=== PATIENT | male | born 1950 | race Caucasian/White ===

== ENCOUNTER 2017-11-19 15:30 | Inpatient (IN) | payer MEDICARE, BC ==
[~2017-11-19] VITALS: Ht 185.4 cm; Wt 98.3 kg
[~2017-11-19 15:30] MED LIST: ADVAIR 250/28 DISKU1 IH; ATROVENT NASAL15 ML NS; BREO IH; HYDROCODONE/APAP; INCRUSE EL62.5 MCG/A IH; MIRAPEX0.25 MG PO; MULTIPLE VITAMI1 CAP PO; PAMELOR50 MG PO; PAROXETINE HCL20 MG PO; PAXIL 20MG20 MG PO; PRAMIPEXOLE D0.25 MG PO; PRIL40 PO; RT ADVAIR 228 DISKUS IH; RT SPIRIVA18 MCG IH; THEO-DUR 1100 MG/TAB PO
[2017-11-19 16:39] LABS: BASO # 0.1 (0.0-0.2); BASO % 0.9 % (0.0-2.0); EOS # 0.5 (0.0-0.7); EOS % 6.3 % (0-4.0); GRAN % 52.3 % (42.2-75.2); HEMATOCRIT 44.8 % (42.0-52.0); HEMOGLOBIN 15.6 g/dl (13.5-18.0); LYMPH # 2.6 (1.2-3.4); LYMPH % 34.9 % (20.0-51.0); MEAN CELL VOLUME 94 fl (80.0-100.0); MEAN CORPUSCULAR HEMOGLOBIN 33 pg (27.0-31.0); MEAN CORPUSCULAR HGB CONC 35 g/dl (33.0-37.0); MEAN PLATELET VOLUME 9.7 fl (7.4-10.4); MONO # 0.4 (0.1-0.6); MONO % 4.9 % (1.7-9.3); PLATELET COUNT 192 K/mm3 (130-400); RED BLOOD COUNT 4.79 M/mm3 (4.20-5.60)
[2017-11-19 16:54] LABS: ALBUMIN 4.2 gm/dL (3.5-5.0); BILIRUBIN,TOTAL 0.4 mg/dL (0.0-1.0); C-REACTIVE PROTEIN 1.6 mg/dL (0.0-0.9); CALCIUM 9.5 mg/dL (8.4-10.2); POTASSIUM 4.3 mmol/L (3.4-5.0); TOTAL PROTEIN 7.4 gm/dL (6.4-8.2)
[2017-11-19] MEDS ORDERED: ALBUTEROL S0.4 MG/ML PO (20:08)
[2017-11-19 20:59] VITALS: BP 157/86; PULSE 74; TEMP 98.3
[2017-11-19 21:08] VITALS: BP 157/8; PULSE 75; TEMP 98.3
[2017-11-19 23:42] VITALS: BP 157/70; PULSE 78; TEMP 98.2
[2017-11-20] MEDS ORDERED: TRELEGY ELLIPT1 EACH IH (03:27)
[2017-11-20 03:57] VITALS: BP 151/79; PULSE 87; TEMP 98.1
[2017-11-20 07:29] VITALS: BP 163/88; PULSE 92; TEMP 98.4
[2017-11-20 10:44] VITALS: BP 161/74; PULSE 108; TEMP 98.4
[2017-11-20] MEDS ORDERED: PAXIL 20MG20 MG PO (15:29)
[2017-11-20 16:05] VITALS: BP 176/82; PULSE 81; TEMP 99
[2017-11-20 20:00] VITALS: BP 171/82; PULSE 99; TEMP 98.5
[2017-11-20 22:50] VITALS: BP 160/77; PULSE 104; TEMP 98.2
[2017-11-21 04:24] VITALS: BP 151/80; PULSE 85; TEMP 97.9
[2017-11-21 08:33] VITALS: BP 144/73; PULSE 90; TEMP 98.3
[2017-11-21 08:45] LABS: BASO # 0.1 (0.0-0.2); BASO % 0.5 % (0.0-2.0); EOS # 0.1 (0.0-0.7); EOS % 0.7 % (0-4.0); GRAN # 12.4 (1.4-6.5); GRAN % 74.9 % (42.2-75.2); HEMATOCRIT 44.5 % (42.0-52.0); HEMOGLOBIN 15.1 g/dl (13.5-18.0); LYMPH # 3.6 (1.2-3.4); LYMPH % 21.7 % (20.0-51.0); MEAN CELL VOLUME 96 fl (80.0-100.0); MEAN CORPUSCULAR HEMOGLOBIN 33 pg (27.0-31.0); MEAN CORPUSCULAR HGB CONC 34 g/dl (33.0-37.0); MEAN PLATELET VOLUME 9.8 fl (7.4-10.4); MONO # 0.3 (0.1-0.6); MONO % 1.7 % (1.7-9.3); PLATELET COUNT 186 K/mm3 (130-400); RED BLOOD COUNT 4.63 M/mm3 (4.20-5.60)
[2017-11-21 10:19] LABS: CALCIUM 9.2 mg/dL (8.4-10.2); CREATININE, serum 0.84 mg/dL (0.66-1.25); POTASSIUM 3.8 mmol/L (3.4-5.0)
[2017-11-21 11:22] VITALS: BP 162/77; PULSE 98; TEMP 98.6
[2017-11-21 16:41] VITALS: BP 155/66; PULSE 93; TEMP 98.6
[2017-11-21 20:41] VITALS: BP 177/80; PULSE 88; TEMP 98.3
[2017-11-22] VITALS (302 sets, daily range): BP systolic 149–175; BP diastolic 81–93; PULSE 83–101; TEMP 97.9–98.7; O2SAT 88–96
[2017-11-22 09:27] LABS: BASO % 0.1 % (0.0-2.0); EOS # 0.1 (0.0-0.7); EOS % 0.3 % (0-4.0); GRAN # 10.8 (1.4-6.5); GRAN % 71.1 % (42.2-75.2); HEMOGLOBIN 15.1 g/dl (13.5-18.0); LYMPH % 26.2 % (20.0-51.0); MEAN CELL VOLUME 95 fl (80.0-100.0); MEAN CORPUSCULAR HEMOGLOBIN 33 pg (27.0-31.0); MEAN CORPUSCULAR HGB CONC 34 g/dl (33.0-37.0); MEAN PLATELET VOLUME 9.7 fl (7.4-10.4); MONO # 0.3 (0.1-0.6); MONO % 1.6 % (1.7-9.3); PLATELET COUNT 183 K/mm3 (130-400); RED BLOOD COUNT 4.62 M/mm3 (4.20-5.60); REDCELL DISTRIBUTION WIDTH-CV 11.9 % (11.5-14.5)
[2017-11-22 09:39] LABS: CALCIUM 8.6 mg/dL (8.4-10.2); CREATININE, serum 0.82 mg/dL (0.66-1.25); POTASSIUM 3.6 mmol/L (3.4-5.0)
[2017-11-22 15:05] LABS: ARTERIAL BLD GAS O2 SATURATION 94.1 % (92-100); ARTERIAL BLD GAS TCO2 CT 22.5; ARTERIAL BLOOD GAS HCO3 21.5 meq/L (22-26); ARTERIAL BLOOD GAS PCO2 33.3 mmHg (35-45); ARTERIAL BLOOD GAS PO2 73.8 mmHg (80-100); ARTERIAL BLOOD GAS pH 7.43 (7.35-7.45)
[2017-11-23] VITALS (1139 sets, daily range): BP systolic 129–161; BP diastolic 72–94; PULSE 70–114; TEMP 97–98.2; O2SAT 77–100
[2017-11-23 08:04] LABS: BASO % 0.2 % (0.0-2.0); GRAN # 8.8 (1.4-6.5); GRAN % 67.5 % (42.2-75.2); HEMATOCRIT 45.6 % (42.0-52.0); HEMOGLOBIN 15.5 g/dl (13.5-18.0); LYMPH # 3.9 (1.2-3.4); LYMPH % 30.2 % (20.0-51.0); MEAN CELL VOLUME 95 fl (80.0-100.0); MEAN CORPUSCULAR HEMOGLOBIN 32 pg (27.0-31.0); MEAN CORPUSCULAR HGB CONC 34 g/dl (33.0-37.0); MEAN PLATELET VOLUME 9.9 fl (7.4-10.4); MONO # 0.2 (0.1-0.6); MONO % 1.2 % (1.7-9.3); PLATELET COUNT 186 K/mm3 (130-400); RED BLOOD COUNT 4.78 M/mm3 (4.20-5.60)
[2017-11-23 08:13] LABS: CALCIUM 8.7 mg/dL (8.4-10.2); CREATININE, serum 0.99 mg/dL (0.66-1.25); POTASSIUM 4.2 mmol/L (3.4-5.0)
[2017-11-23] MEDS ORDERED: ALBUTEROL0.83 MG/ML PO (17:52)
[2017-11-23] MEDS ORDERED: UNIPHYL 400MG400 MG PO (17:53)
[2017-11-23] MEDS ORDERED: TRELEGY ELLIPT1 EACH IH (17:55)
[2017-11-24] VITALS (761 sets, daily range): BP systolic 163–174; BP diastolic 83–96; PULSE 72–81; TEMP 97–98.6; O2SAT 78–100
[2017-11-24 08:26] LABS: BASO % 0.1 % (0.0-2.0); GRAN # 6.6 (1.4-6.5); GRAN % 68.7 % (42.2-75.2); HEMATOCRIT 42.7 % (42.0-52.0); HEMOGLOBIN 14.7 g/dl (13.5-18.0); LYMPH # 2.8 (1.2-3.4); LYMPH % 28.9 % (20.0-51.0); MEAN CELL VOLUME 95 fl (80.0-100.0); MEAN CORPUSCULAR HEMOGLOBIN 33 pg (27.0-31.0); MEAN CORPUSCULAR HGB CONC 34 g/dl (33.0-37.0); MEAN PLATELET VOLUME 9.9 fl (7.4-10.4); MONO # 0.1 (0.1-0.6); PLATELET COUNT 162 K/mm3 (130-400); RED BLOOD COUNT 4.48 M/mm3 (4.20-5.60); REDCELL DISTRIBUTION WIDTH-CV 11.7 % (11.5-14.5)
[2017-11-24 08:36] LABS: ALBUMIN 3.2 gm/dL (3.5-5.0); BILIRUBIN,TOTAL 0.3 mg/dL (0.0-1.0); CALCIUM 7.9 mg/dL (8.4-10.2); CREATININE, serum 0.88 mg/dL (0.66-1.25); POTASSIUM 3.9 mmol/L (3.4-5.0); TOTAL PROTEIN 5.9 gm/dL (6.4-8.2)
[2017-11-25] VITALS (462 sets, daily range): BP systolic 143–166; BP diastolic 75–94; PULSE 60–82; TEMP 96.9–98.2; O2SAT 72–99
[2017-11-25 07:18] LABS: HEMATOCRIT 42.7 % (42.0-52.0); HEMOGLOBIN 15.1 g/dl (13.5-18.0); MEAN CELL VOLUME 93 fl (80.0-100.0); MEAN CORPUSCULAR HEMOGLOBIN 33 pg (27.0-31.0); MEAN CORPUSCULAR HGB CONC 35 g/dl (33.0-37.0); MEAN PLATELET VOLUME 9.8 fl (7.4-10.4); PLATELET COUNT 157 K/mm3 (130-400); RED BLOOD COUNT 4.59 M/mm3 (4.20-5.60); REDCELL DISTRIBUTION WIDTH-CV 11.8 % (11.5-14.5)
[2017-11-25 07:31] LABS: ALBUMIN 3.2 gm/dL (3.5-5.0); BILIRUBIN,TOTAL 0.4 mg/dL (0.0-1.0); CALCIUM 8.1 mg/dL (8.4-10.2); CREATININE, serum 0.8 mg/dL (0.66-1.25); POTASSIUM 3.3 mmol/L (3.4-5.0); TOTAL PROTEIN 5.8 gm/dL (6.4-8.2)
[2017-11-25 07:42] LABS: BAND 1 % (0-10); LYMPHOCYTE 38 % (20.0-51.0); NEUTROPHILS 59 % (42.0-75.2); PLATELET ESTIMATE NORMAL (NORMAL)
[2017-11-26 03:30] VITALS: BP 159/77; PULSE 75; TEMP 98.2
[2017-11-26 09:00] VITALS: BP 150/83; PULSE 71; TEMP 98
[2017-11-26 11:53] VITALS: BP 120/62; PULSE 77; TEMP 98.2
[2017-11-26 16:15] VITALS: BP 149/74; PULSE 68; TEMP 97.9
[2017-11-26 20:00] VITALS: BP 146/74; PULSE 71; TEMP 98.2
[2017-11-26 23:24] VITALS: BP 139/74; PULSE 71; TEMP 98.2
[2017-11-27] VITALS (10 sets, daily range): BP systolic 133–159; BP diastolic 70–84; PULSE 65–100; TEMP 97.1–97.8
[2017-11-27 07:54] LABS: ALBUMIN 3.1 gm/dL (3.5-5.0); BILIRUBIN,TOTAL 0.6 mg/dL (0.0-1.0); CALCIUM 8.1 mg/dL (8.4-10.2); CREATININE, serum 0.79 mg/dL (0.66-1.25); MAGNESIUM 2.5 mg/dL (1.6-2.3); POTASSIUM 4.1 mmol/L (3.4-5.0); TOTAL PROTEIN 5.6 gm/dL (6.4-8.2)
[2017-11-28] VITALS (16 sets, daily range): BP systolic 115–148; BP diastolic 62–93; PULSE 64–84; TEMP 97–98.2
[2017-11-28 06:39] LABS: BASO % 0.1 % (0.0-2.0); GRAN # 6.7 (1.4-6.5); GRAN % 74.2 % (42.2-75.2); HEMATOCRIT 41.4 % (42.0-52.0); HEMOGLOBIN 14.6 g/dl (13.5-18.0); LYMPH % 22.2 % (20.0-51.0); MEAN CELL VOLUME 94 fl (80.0-100.0); MEAN CORPUSCULAR HEMOGLOBIN 33 pg (27.0-31.0); MEAN CORPUSCULAR HGB CONC 35 g/dl (33.0-37.0); MONO # 0.2 (0.1-0.6); MONO % 2.3 % (1.7-9.3); PLATELET COUNT 142 K/mm3 (130-400); RED BLOOD COUNT 4.41 M/mm3 (4.20-5.60); REDCELL DISTRIBUTION WIDTH-CV 11.7 % (11.5-14.5)
[2017-11-28 06:53] LABS: ALBUMIN 2.7 gm/dL (3.5-5.0); BILIRUBIN,TOTAL 0.5 mg/dL (0.0-1.0); CALCIUM 7.7 mg/dL (8.4-10.2); CREATININE, serum 0.82 mg/dL (0.66-1.25); POTASSIUM 4.1 mmol/L (3.4-5.0)
[2017-11-29] VITALS: BP 132/71; PULSE 66; TEMP 97.8
[2017-11-29 04:00] VITALS: BP 134/76; PULSE 62; TEMP 97.6
[2017-11-29 07:18] LABS: BASO % 0.1 % (0.0-2.0); EOS % 0.1 % (0-4.0); GRAN # 5.6 (1.4-6.5); GRAN % 75.2 % (42.2-75.2); HEMATOCRIT 42.9 % (42.0-52.0); HEMOGLOBIN 14.8 g/dl (13.5-18.0); LYMPH # 1.5 (1.2-3.4); LYMPH % 20.4 % (20.0-51.0); MEAN CELL VOLUME 95 fl (80.0-100.0); MEAN CORPUSCULAR HEMOGLOBIN 33 pg (27.0-31.0); MEAN CORPUSCULAR HGB CONC 35 g/dl (33.0-37.0); MEAN PLATELET VOLUME 9.9 fl (7.4-10.4); MONO # 0.2 (0.1-0.6); MONO % 3.1 % (1.7-9.3); PLATELET COUNT 123 K/mm3 (130-400); RED BLOOD COUNT 4.54 M/mm3 (4.20-5.60)
[2017-11-29 07:30] LABS: ALBUMIN 2.9 gm/dL (3.5-5.0); BILIRUBIN,TOTAL 0.6 mg/dL (0.0-1.0); CALCIUM 7.7 mg/dL (8.4-10.2); CREATININE, serum 0.83 mg/dL (0.66-1.25); POTASSIUM 4.5 mmol/L (3.4-5.0); TOTAL PROTEIN 5.2 gm/dL (6.4-8.2)
[2017-11-29 08:48] VITALS: BP 156/82; PULSE 77; TEMP 97.2
[2017-11-29 12:18] VITALS: BP 113/64; PULSE 88; TEMP 98.3
[2017-11-29] MEDS ORDERED: PERFOROMIS20 MCG/2 M IH (12:42)
[2017-11-29] MEDS ORDERED: PACERONE400 MG PO (12:42)
[2017-11-29] MEDS ORDERED: ASPIRIN E.C. 8181 MG PO (12:43)
[2017-11-29] MEDS ORDERED: CARDIZEM CD 12120 MG PO (12:43)
[2017-11-29] MEDS ORDERED: MUCINEX1200 MG PO (12:45)
[2017-11-29] MEDS ORDERED: FLONASE NASAL S16 GM NS (12:59)
[2017-11-29] MEDS ORDERED: PREDNISONE20 MG PO (13:02)
== END 2017-11-29 15:30 | disposition home or self-care (01) | DRG 871 ==
LOC: COL.ER 15:30 → MEDICAL 16:55 → ICU 11-22 16:06 → SURG 11-25 13:15
PROVIDERS: Emergency Medicine; Hospitalist; Internal Medicine; Internal Medicine Cardiovascular Disease; Internal Medicine Pulmonary Disease; Nurse Practitioner Family; Physician Assistant
PROC: B2111ZZ Fluoroscopy of Multiple Coronary Arteries using Low Osmolar Contrast (ICD-10-PCS; principal; 2017-11-28)
PROC: B2151ZZ Fluoroscopy of Left Heart using Low Osmolar Contrast (ICD-10-PCS; 2017-11-28)
PROC: 4A023N7 Measurement of Cardiac Sampling and Pressure, Left Heart, Percutaneous Approach (ICD-10-PCS; 2017-11-28)
DX: A41.9 Sepsis, unspecified organism (principal); J12.1 Respiratory syncytial virus pneumonia; J96.01 Acute respiratory failure with hypoxia; J44.0 Chronic obstructive pulmonary disease with (acute) lower respiratory infection; J44.1 Chronic obstructive pulmonary disease with (acute) exacerbation; I10 Essential (primary) hypertension; E87.6 Hypokalemia; I48.0 Paroxysmal atrial fibrillation; Z87.891 Personal history of nicotine dependence; Z85.6 Personal history of leukemia
CPT/HCPCS: 99222-AI; 99231-AI; 99232-AI; 99233-AI; A9502; C1751; C1769; C1887; J0282; J0692; J0696; J1200; J1644; J1650; J1940; J1956; J2060; J2250; J2785; J2920; J2930; J3010; J7030; J7060; J7512; Q9967

== ENCOUNTER 2018-06-15 10:55 | Inpatient (IN) | payer MEDICARE, BC ==
[~2018-06-15] VITALS: Ht 185.4 cm; Wt 92.0 kg
[~2018-06-15 10:55] MED LIST changes: +ALBUTEROL S0.4 MG/ML PO; +ALBUTEROL0.83 MG/ML PO; +ASPIRIN E.C. 8181 MG PO; +CARDIZEM CD 12120 MG PO; +FLONASE NASAL S16 GM NS; +MUCINEX1200 MG PO; +PACERONE400 MG PO; +PERFOROMIS20 MCG/2 M IH; +PREDNISONE20 MG PO; +TRELEGY ELLIPT1 EACH IH; +UNIPHYL 400MG400 MG PO
[2018-06-18] VITALS (12 sets, daily range): BP systolic 109–153; BP diastolic 53–83; PULSE 67–79; TEMP 97–99
--- NOTE | 2018-06-18 08:30 | NUR ---
Patient ambulates to pre-op room 1 independently. He is alert and oriented. Procedure confirmed, denies any questions, and verbalizes understanding. Assessment completed, WNL, charted under "admission B". Patient is wearing an abductor sling on the left arm. He changes to his gown independently. PIV started in right hand with x1 attempt and without complication. CHG scrub completed on operative site. Call light usage taught and within reach. Will continue to monitor.
[2018-06-18] MEDS ORDERED: NEURONTIN300 MG/CAP PO (08:49)
[2018-06-18] MEDS ORDERED: MULTI VITAMINS1 TAB PO (08:50)
[2018-06-18] MEDS ORDERED: ASPIRIN 32325 MG/TAB PO (08:50)
[2018-06-18] MEDS ORDERED: NORCO 325 MG-51 TAB PO (08:50)
--- NOTE | 2018-06-18 10:10 | NUR ---
Patient to PACU at this time for block with anesthesia.
--- NOTE | 2018-06-18 13:42 | NUR ---
PT TO ROOM 322-1 PER BED WITH JOE LANDAVERDE PACU GIVING BEDSIDE REPORT @ 1330. PT DROSEY BUT ANSWERS ALL QUESTIONS. LUNGS CLEAR. BOWEL SOUNDS PRESENT. BULKY DRESSING TO LEFT SHOULDER CDI RADIAL PULSES PALPABLE FINGERS WARM. IV TO RFA. SCDS BILATERALLY.
--- NOTE | 2018-06-18 15:50 | NUR ---
pt found with sling un clipped and left arm rotated out. Educated patient on importance of keeping arm in neutral plane and to keep sling on at all times. pt was not happy but allowed nursing to reapply sling in correct manner.
--- NOTE | 2018-06-18 18:16 | NUR ---
PT CONTINUES TO BE NON COMPLIANT WITH KEEPING ARM IN SLING. HE UNBUCKLES AND EXTERNALLY ROTATES SHOULDER AND ARM IN SLING OUTWARD. CONTINUE TO PROVIDE POSTITIVE SUPPORT AND EDUCATION BUT PT IS NOT INTERESTED IN FOLLOWING SUGGESTIONS PROVIDED BY NURSING STAFF AND STUDENTS.
--- NOTE | 2018-06-18 18:20 | NUR ---
Patient eating dinner in bed. Pain rated 3 on a numeric scale. Call light within reach. Reported off to Piero LANDAVERDE.
--- NOTE | 2018-06-18 19:08 | NUR ---
report to suasn fishman.
--- NOTE | 2018-06-18 20:15 | NUR ---
PT IN BED WITH HOB ELEVATED TO 45 DEGREE ANGLE, SLING IS ON LEFT ARM AND DRSG INTACT ON LEFT SHOULDER. PT HAS C/O PAIN THAT IS RATED AT 5 TO 10/10, GAVE NORCO 2 TABS FOR PAIN. PT PLEASANT AND COOPERATIVE. PT AMBULATED TO BATHROOM AND BACK TO BED. PT WAS UNABLE TO VOID. PT REFUSED SENOKOTE. PT RESTING IN BED WITH NO FURTHER NEEDS, CALL LIGHT WITHIN REACH.
--- NOTE | 2018-06-18 23:00 | NUR ---
PT HAS NO URINATED YET. PT HAS GOTTEN UP 2X, BUT WAS UNABLE TO URINATE. BLADDER SCANNED PT AND HE ONLY HAD 370 ML OF URINE IN BLADDER.
--- NOTE | 2018-06-19 01:00 | NUR ---
PT ADVISED PRODUCTION CONTROL SUPERVISOR THAT HE REFUSES TO BE STRAIGHT CATH HIM.
--- NOTE | 2018-06-19 02:11 | NUR ---
PT IN BED WITH HOB ELEVATED TO 30 DEGREE ANGLE. PT WEARING NASAL CANULA WITH 2L. PT IS SLEEPING/RESTING AND RESP EVEN AND UNLABORED, WITH NO S/S OF PAIN OR DISCOMFORT NOTED. CALL LIGHT WITHIN REACH.
[2018-06-19 03:29] VITALS: BP 108/52; PULSE 61; TEMP 97
--- NOTE | 2018-06-19 04:04 | NUR ---
PT ADVISED AGAIN THAT HE HAS NOT YET URINATED. ADVISED PT THAT WE MAY NEED TO STRAIGHT CATH HIM. PT ADVISED THAT HE WOULD NOT ALLOW IT. PT STATED, "I WOULD RATHER EXPLODE THAN TO ALLOW THAT TO BE DONE TO ME. NO!" PT WAS GIVEN PAIN MEDICATION FOR PAIN IN LEFT SHOULD THAT RADIATED DOWN TO ELBOW, RATED 7/10." WENT BACK TO ROOM TO ASSIST PT TO BATHROOM AND PT DECLINED AND ADVISED, "NOT NOW, LATER." PT NOW SOFTLY SNORING AND RESP EVEN AND UNLABORED, WITH NO S/S OF PAIN OR DISCOMFORT NOTED. CALL LIGHT WITHIN REACH.
--- NOTE | 2018-06-19 07:37 | NUR ---
Report from Nina LANDAVERDE.
[2018-06-19 08:22] VITALS: BP 108/59; PULSE 60; TEMP 98.5
--- NOTE | 2018-06-19 10:41 | NUR ---
PT RESTING IN BED AFTER WORKING WITH THERAPY. PLAN ON DISCHARGE LATER TODAY OR TOMMORROW.
--- NOTE | 2018-06-19 11:38 | NUR ---
MARK student met with the patient to discuss discharge planning. The patient lives alone in [place]. The patient reports independence with ADLs and has no DME. The patients PCP is Dr. Boyce and he gets his medication from [facility] in either [place] or [place]. The patient reports he does have a DPOA-HC completed and the forms are with his son, Benjamin. The patient plans to return home upon discharge. No additional needs at this time.
--- NOTE | 2018-06-19 12:07 | NUR ---
Initial visit; Patient thanked Milk Drier for looking in on him and wishing him well.
[2018-06-19 12:30] VITALS: BP 118/50; PULSE 60; TEMP 98
[2018-06-19 16:23] VITALS: BP 135/75; PULSE 77; TEMP 98.4
[2018-06-19 20:00] VITALS: BP 147/83; PULSE 54; TEMP 98
--- NOTE | 2018-06-19 20:00 | NUR ---
Pt resting in bed. No distress noted. Pt c/o stabbing L shoulder pain 6-09/23. L arm in imbolizer brace. CMS intact. Occlusive tape to L shoulder incision. VSS. Respirations even and unlabored. Pt has productive cough. Inspiratory wheeze ausculated to lung hays. BS+. Pt refusing ICE stating "it doesn't do any good". Pt also refusing SCDs at this time. Pedal pulses 2+ bialt. No edema noted. Pt denies needs at this time.
--- NOTE | 2018-06-19 20:43 | NUR ---
Pt rating pain 7/10 in L shoulder- stabbing. PRN pain medication gien. Pt is awake and alert.
--- NOTE | 2018-06-19 22:19 | NUR ---
Pt is c/o pain 5/10 in L shoulder- stabbing. Awake and alert. No distress. PrN medication given.
[2018-06-19 23:15] VITALS: BP 148/65; PULSE 57
--- NOTE | 2018-06-20 02:49 | NUR ---
Pt c/o pain 6/10 in L shoulder that is sharp and worsens with movement. No distress noted. PRN pain medication given.
[2018-06-20 04:00] VITALS: BP 146/75; PULSE 55; TEMP 98.1
--- NOTE | 2018-06-20 07:00 | NUR ---
Report given to Cal LANDAVERDE. Pt back in bed after being up to bathroom. No distress noted. Pt reports that his pain is uner control this AM. Denies needs.
[2018-06-20 07:28] VITALS: BP 153/74; PULSE 57; TEMP 97.9
[2018-06-20] MEDS ORDERED: NORCO 325 MG-51 TAB PO (07:29)
[2018-06-20] MEDS ORDERED: BACTRIM DS 8001 TAB PO (07:30)
--- NOTE | 2018-06-20 09:01 | NUR ---
Assessment completed, alert/oriented, vital signs stable, reports pain in left shoulder is controlled and is a 3/10 at htis time, I have instructed that he can remove the immobilizer at his discretion and do ROM, He reports some urinary hesitancy last couple days but stated he has voided a couple times this morning already, heart RRR, lungs CTA/ no resp.difficulty noted, synovial fluid cultures are NGTD/ and has been in and reviewed chart and is going to discharge him home, Ortho follow up is already scheduled
--- NOTE | 2018-06-20 10:23 | NUR ---
Discharge instructions reviewed, isntructed to follow up with Ortho as previously scheduled, instructed to continue outpatient PT/OT, explained activity restriction/ may shower tommorow/ keep incision covered with bandaids otherwise/ may take immoblizer off and do ROM as tolerated, scripts for Bactrim and NOrco provided and education on meds and procedure provided, IV removed from left hand, leaving with a friend/family, he is ambulatory and I personally escorted him out to the vehicle
== END 2018-06-20 10:25 | disposition home or self-care (01) | DRG 857 ==
LOC: INPTSU 06-18 08:22 → EDSTATUS 06-18 10:30 → SDCO 06-18 10:30 → SURG 06-18 13:30
PROVIDERS: ADMIT Orthopaedic Surgery
PROC: 0RPK44Z Removal of Internal Fixation Device from Left Shoulder Joint, Percutaneous Endoscopic Approach (ICD-10-PCS; 2018-06-18)
PROC: 0R9K4ZX Drainage of Left Shoulder Joint, Percutaneous Endoscopic Approach, Diagnostic (ICD-10-PCS; 2018-06-18)
PROC: 0RBK4ZZ Excision of Left Shoulder Joint, Percutaneous Endoscopic Approach (ICD-10-PCS; principal; 2018-06-18 10:30)
DX: T81.40XA Infection following a procedure, unspecified, initial encounter (principal); T85.612A Breakdown (mechanical) of permanent sutures, initial encounter; M75.102 Unspecified rotator cuff tear or rupture of left shoulder, not specified as traumatic; Y79.3 Surgical instruments, materials and orthopedic devices (including sutures) associated with adverse incidents; Z85.6 Personal history of leukemia; Z87.891 Personal history of nicotine dependence
CPT/HCPCS: A4619; A9284; J0171; J0690; J1170; J2250; J2270; J2405; J2704; J2795; J3010; J7030; J7120

== ENCOUNTER 2018-07-24 08:44 | Day surgery (SDC) | payer BC ==
[~2018-07-24] VITALS: Ht 185.4 cm; Wt 90.0 kg
[~2018-07-24 08:44] MED LIST changes: +ASPIRIN 32325 MG/TAB PO; +BACTRIM DS 8001 TAB PO; +MULTI VITAMINS1 TAB PO; +NEURONTIN300 MG/CAP PO; +NORCO 325 MG-51 TAB PO
[2018-07-24 09:45] VITALS: BP 134/82; PULSE 95; TEMP 97.2
[2018-07-24 11:30] VITALS: BP 97/71; PULSE 89; TEMP 97.7
--- NOTE | 2018-07-24 11:30 | NUR ---
Pt to GI bay 7 via cart from [facility]. Pt drowsy, but awake. Pt ambulates to recliner with stand by assistance. Pt denies pain or nausea. Sprite and muffin given. No visitors here with pt at this time. Will continue to monitor. Call light within reach.
[2018-07-24 11:45] VITALS: BP 112/74; PULSE 78
--- NOTE | 2018-07-24 11:45 | NUR ---
Pt continues to rest. Tolerating food, and fluids without difficultes. Call light within reach.
[2018-07-24 12:00] VITALS: BP 122/69; PULSE 78
--- NOTE | 2018-07-24 12:00 | NUR ---
Pt continues to rest. Denies needs. Call light within reach.
--- NOTE | 2018-07-24 12:10 | NUR ---
Discharge instructions reviewed. Pt voices understanding. IV discontinued with all parts intact. Pt up to dress. Call light within reach.
--- NOTE | 2018-07-24 12:15 | NUR ---
Pt escorted to private car via wheel chair. Pt accompanied home by his friend.
== END 2018-07-24 12:15 | disposition home or self-care (01) ==
LOC: SDCO 08:44
DX: Z12.11 Encounter for screening for malignant neoplasm of colon (principal); K57.30 Diverticulosis of large intestine without perforation or abscess without bleeding; D12.3 Benign neoplasm of transverse colon; J44.9 Chronic obstructive pulmonary disease, unspecified; K21.9 Gastro-esophageal reflux disease without esophagitis; G89.29 Other chronic pain; F41.9 Anxiety disorder, unspecified; Z90.49 Acquired absence of other specified parts of digestive tract; Z79.82 Long term (current) use of aspirin; Z87.891 Personal history of nicotine dependence
CPT/HCPCS: J2704; J7120

== ENCOUNTER 2018-08-05 12:08 | Emergency (ER) | payer BC ==
[~2018-08-05] VITALS: Ht 185.4 cm; Wt 91.4 kg
[2018-08-05 12:29] VITALS: BP 119/61; TEMP 97.6
[2018-08-05] MEDS ORDERED: XARELTO20 MG PO (12:38)
[2018-08-05] MEDS ORDERED: ASPI325T6 PO (12:39)
[2018-08-05 13:49] LABS: BASO % 0.4 % (0.0-2.0); EOS # 0.1 (0.0-0.7); EOS % 0.8 % (0-4.0); GRAN # 5.2 (1.4-6.5); GRAN % 67.1 % (42.2-75.2); HEMATOCRIT 46.9 % (42.0-52.0); HEMOGLOBIN 16.1 g/dl (13.5-18.0); LYMPH % 25.6 % (20.0-51.0); MEAN CELL VOLUME 89 fl (80.0-100.0); MEAN CORPUSCULAR HEMOGLOBIN 31 pg (27.0-31.0); MEAN CORPUSCULAR HGB CONC 34 g/dl (33.0-37.0); MEAN PLATELET VOLUME 10.5 fl (7.4-10.4); MONO # 0.4 (0.1-0.6); MONO % 5.7 % (1.7-9.3); PLATELET COUNT 201 K/mm3 (130-400); RED BLOOD COUNT 5.25 M/mm3 (4.20-5.60); REDCELL DISTRIBUTION WIDTH-CV 13.5 % (11.5-14.5)
[2018-08-05 14:01] LABS: ALBUMIN 4.1 gm/dL (3.5-5.0); BILIRUBIN,TOTAL 0.8 mg/dL (0.0-1.0); C-REACTIVE PROTEIN 5.7 mg/dL (0.0-0.9); CALCIUM 9.5 mg/dL (8.4-10.2); CREATININE, serum 1.09 (0.66-1.25); POTASSIUM 4.6 mmol/L (3.4-5.0); TOTAL PROTEIN 7.1 gm/dL (6.4-8.2)
[2018-08-05 15:55] VITALS: PULSE 76
== END 2018-08-05 15:55 | disposition home or self-care (01) ==
LOC: COL.ER 12:08
PROVIDERS: Physician Assistant
DX: J44.1 Chronic obstructive pulmonary disease with (acute) exacerbation (principal); I48.91 Unspecified atrial fibrillation; Z90.49 Acquired absence of other specified parts of digestive tract; Z79.82 Long term (current) use of aspirin; Z79.01 Long term (current) use of anticoagulants; F17.290 Nicotine dependence, other tobacco product, uncomplicated; Z85.6 Personal history of leukemia; Z79.51 Long term (current) use of inhaled steroids
CPT/HCPCS: J7030; J7512

== ENCOUNTER 2018-08-27 07:00 | Day surgery (SDC) | payer BC ==
[2018-08-27] VITALS (8 sets, daily range): BP systolic 102–111; BP diastolic 57–68; PULSE 49–56; TEMP 97–97.6
[~2018-08-27] VITALS: Ht 182.9 cm; Wt 91.9 kg
[~2018-08-27 07:00] MED LIST changes: +ASPI325T6 PO; +ASPIRIN 81M81 MG/TA2 PO; +BETAPACE 80MG80 MG PO; +XARELTO20 MG PO
[2018-08-27] MEDS ORDERED: ALBUTEROL0.83 MG/ML IH (07:58)
--- NOTE | 2018-08-27 08:08 | NUR ---
PATIENT TAKEN TO PACU FOR BLOCK
--- NOTE | 2018-08-27 12:00 | NUR ---
TO RM 6 PER CART FROM PACU. RESPONDS TO TACTILE STIMULATION WITH SLIGHT NOD OF INSTRUCTED PATIENT TO TAKE DEEP BREATHS AND COUGH. SLIGHT COUGH NOTED. WITH EACH COUGH SATS INCREASED TO 95% HIS HEAD AND FALLS BACK TO SLEEP. 02 SAT 92% ON 3L PER NC. INCREASED O2 TO 4L WITH SATS 94%. LEFT SHOULDER DRESSING CLEAN DRY INTACT. LEFT ARM IN AN ABDUCTION SLING. NO SIGNS OF DISTRESS. NO SIGNS OF PAIN AT THIS TIME. GOOD CAPILLARY REFILL GOOD
--- NOTE | 2018-08-27 12:15 | NUR ---
02 SAT 96% ON 4L. SLEEPING
--- NOTE | 2018-08-27 12:30 | NUR ---
CONTINUES TO SLEEP QUIETLY
--- NOTE | 2018-08-27 12:45 | NUR ---
AROUSES TO VERBAL STIMULTION AND FALLS BACK TO SLEEP.
--- NOTE | 2018-08-27 13:15 | NUR ---
WOKE AND ASKING TO GO HOME RECEIVED WATER AND PUDDING
--- NOTE | 2018-08-27 13:30 | NUR ---
RECEIVED MAGALI. PATIENT TEXTING FRIEND FOR RIDE HOME.
--- NOTE | 2018-08-27 14:00 | NUR ---
ATE 100% AND TOLERATED WELL. UP AMBULATED TO BATHROOM. PATIENT STATED " I VOIDED SOME"
--- NOTE | 2018-08-27 14:15 | NUR ---
DISCONTINUED IV AND INT- COVERED WITH COTTON BALL AND COBAN. RECEIVED DISCHARGE INSTRUCTIONS AND VERBALIZED UNDERSTANDING
--- NOTE | 2018-08-27 14:25 | NUR ---
IV SITE STARTED BLEEDING. CHANGED DRESSED AND APPLIED PRESSURE DRESSING. ASSISTED PATIENT DRESSED
--- NOTE | 2018-08-27 14:50 | NUR ---
DISCHARGED PER WC BY NURSING STAFF TO PRIVATE CAR IN CARE OF FRIEND- AMY.
== END 2018-08-27 14:59 | disposition home or self-care (01) ==
LOC: SDCO 07:00
DX: M75.122 Complete rotator cuff tear or rupture of left shoulder, not specified as traumatic (principal); I48.91 Unspecified atrial fibrillation; C91.10 Chronic lymphocytic leukemia of B-cell type not having achieved remission; J44.9 Chronic obstructive pulmonary disease, unspecified; G89.29 Other chronic pain; Z79.82 Long term (current) use of aspirin; Z79.01 Long term (current) use of anticoagulants; Z90.49 Acquired absence of other specified parts of digestive tract; Z87.891 Personal history of nicotine dependence; Z82.5 Family history of asthma and other chronic lower respiratory diseases
CPT/HCPCS: A4619; C1713; J0171; J0690; J1100; J1885; J2250; J2405; J2704; J2795; J3010; J7120

== ENCOUNTER → 2018-10-09 | Outpatient (CLI) | payer BC ==
[~2018-10-09] MED LIST changes: +ALBUTEROL0.83 MG/ML IH
== END ==
LOC: COL.RAD 12:50
DX: Z01.818 Encounter for other preprocedural examination (principal); R36.1 Hematospermia
CPT/HCPCS: Q9967

== ENCOUNTER → 2021-03-15 | Outpatient (CLI) | payer BC | LOC: COL.RAD 10:00 | DX: Z12.2 Encounter for screening for malignant neoplasm of respiratory organs (principal); F17.210 Nicotine dependence, cigarettes, uncomplicated; J43.9 Emphysema, unspecified; J84.10 Pulmonary fibrosis, unspecified ==

== ENCOUNTER 2021-07-11 13:53 | Inpatient (IN) | payer MEDICARE, BC ==
[~2021-07-11] VITALS: Ht 182.9 cm; Wt 82.1 kg
[2021-07-11 15:50] LABS: COLLECTION METHOD CATHETER
[2021-07-11 15:51] LABS: BASO % 0.7 % (0.0-2.0); EOS # 0.1 K/mm3 (0.0-0.7); EOS % 1.4 % (0.0-4.0); GRAN % 71.8 % (42.2-75.2); HEMOGLOBIN 11.1 g/dl (13.5-18.0); LYMPH # 0.9 K/mm3 (1.2-3.4); LYMPH % 20.6 % (20.0-51.0); MEAN CELL VOLUME 97 fl (80.0-100.0); MEAN CORPUSCULAR HEMOGLOBIN 31 pg (27-31); MEAN CORPUSCULAR HGB CONC 32 g/dl (33.0-37.0); MEAN PLATELET VOLUME 10.6 fl (7.4-10.4); MONO # 0.2 K/mm3 (0.1-0.6); PLATELET COUNT 123 K/mm3 (130-400); RED BLOOD COUNT 3.55 M/mm3 (4.20-5.60); REDCELL DISTRIBUTION WIDTH-CV 16.7 % (11.5-14.5)
[2021-07-11 15:53] LABS: HEMATOCRIT 34.5 % (42.0-52.0)
[2021-07-11 16:00] LABS: ALANINE AMINOTRANSFERASE 15 U/L (0-55); ALBUMIN 3.5 gm/dL (3.4-4.8); ALKALINE PHOSPHATASE 73 U/L (40-150); ANION GAP 10 mmol/L (7-16); AST,SGOT 14 U/L (5-34); BILIRUBIN,TOTAL 0.6 mg/dL (0.2-1.2); BLOOD UREA NITROGEN 21 mg/dL (8-26); CALCIUM 8.4 mg/dL (8.4-10.2); CARBON DIOXIDE 24 mmol/L (23-31); CHLORIDE 102 mmol/L (98-107); CREATININE, serum 1.51 mg/dL (0.72-1.25); GLUCOSE 92 mg/dL (70-99); MAGNESIUM 1.8 mg/dL (1.6-2.6); PHOSPHOROUS 2.8 mg/dL (2.3-4.7); POTASSIUM 4.2 mmol/L (3.5-4.5); SODIUM 136 mmol/L (136-145)
[2021-07-11 16:02] LABS: MUCOUS Present (NOT PRESENT); PH 5 (5-8); SQUAMOUS EPITHELIAL None Seen /hpf (0-10); URINE APPEARANCE Hazy (CLEAR/HAZY); URINE BACTERIA None Seen /hpf (NONE SEEN); URINE BILIRUBIN Negative (NEGATIVE); URINE BLOOD Negative (NEGATIVE); URINE COLOR Yellow (YELLOW); URINE GLUCOSE Negative (NEGATIVE); URINE KETONE Negative (NEGATIVE); URINE LEUKOCYTE ESTERASE Negative (NEGATIVE); URINE NITRATE Negative (NEGATIVE); URINE PROTEIN(semi-quant) Negative (NEGATIVE); URINE UROBILINOGEN Negative (NEGATIVE); URINE WBC 0-2 /hpf (0-2)
[2021-07-11 16:10] LABS: TROPONIN-I < 0.010 ng/mL (0.00-0.033)
[2021-07-11] MEDS ORDERED: PAXIL40 MG PO (19:48)
[2021-07-11] MEDS ORDERED: PACERONE200 MG PO (19:50)
[2021-07-11] MEDS ORDERED: LIPITOR 10MG10 MG PO (19:51)
[2021-07-11] MEDS ORDERED: PRINIVIL10 MG PO (19:51)
[2021-07-11] MEDS ORDERED: FERRO-TIME325 MG PO (19:53)
[2021-07-11] MEDS ORDERED: MELATONIN5 M1 SL (19:53)
[2021-07-11] MEDS ORDERED: VITAMIN C500 MG PO (19:53)
[2021-07-11] MEDS ORDERED: B-121000 MCG PO (19:53)
[2021-07-11] MEDS ORDERED: FIORICET 325 MG1 TA1 PO (19:54)
[2021-07-12] VITALS (9 sets, daily range): BP systolic 134–157; BP diastolic 48–62; PULSE 63–89; TEMP 97.4–98.9
--- NOTE | 2021-07-12 01:20 | NUR ---
Pt. arrived to the floor. Pt. is A&OX3, assessment complete. IV to lt. upper arm patent, IV fluids infusing per orders. Pt. denies pain or other needs, call light within reach.
[2021-07-12 06:29] LABS: HEMOGLOBIN 11.5 g/dl (13.5-18.0); MEAN CELL VOLUME 96 fl (80.0-100.0); MEAN CORPUSCULAR HEMOGLOBIN 31 pg (27-31); MEAN CORPUSCULAR HGB CONC 33 g/dl (33.0-37.0); PLATELET COUNT 135 K/mm3 (130-400); RED BLOOD COUNT 3.68 M/mm3 (4.20-5.60); REDCELL DISTRIBUTION WIDTH-CV 16.2 % (11.5-14.5)
[2021-07-12 06:41] LABS: HEMATOCRIT 35.4 % (42.0-52.0)
[2021-07-12 06:44] LABS: CALCIUM 8.6 mg/dL (8.4-10.2); CREATININE, serum 1.12 mg/dL (0.72-1.25); POTASSIUM 4.4 mmol/L (3.5-4.5)
[2021-07-12 07:00] LABS: BAND 4 % (0-10); LYMPHOCYTE 14 % (20.0-51.0); NEUTROPHILS 81 % (42.0-75.2); TARGET CELLS 1+; TEAR DROP CELLS 1+
[2021-07-12 07:01] LABS: OVALOCYTES 1+; SCHISTOCYTES 1+
--- NOTE | 2021-07-12 10:11 | NUR ---
Social Work student met with patient to discuss discharge planning. Patient lives in [place] "with his 3 dogs." Patient [address] Dr. Trey Gordon for primary care. Patient receives his medications from [facility] in [place] by mail. Patient states that he does not utilize any durable medical equiptment except for oxygen at night. SW asked how much oxygen he uses at night and patient stated, "I turn that thing up real high." Patient states that he has filled out a DPOA-HC prior to his stay at the hospital and that it lists Benjamin as his primary agent. Patient does not have a significant other. Patient has four kids: Benjamin(ph#[phone]), Olivia, Trey, Shalom, and Luís. MARK called [facility] to check and see if there is a DPOA-HC on file for patient. Renita with [employer] reported to MARK that there is not. *Discharge plan: Home*
--- NOTE | 2021-07-12 10:26 | NUR ---
Initial visit; Patient thanked Graining Machine Operator for looking in on him and offering God's blessings.
--- NOTE | 2021-07-12 11:30 | NUR ---
ULTRASOUND IN ROOM WITH PT. PT IS SITTING UP, STATES THAT HE IS HAVING A HARD TIME BREATHING, BREATHING IS LABORED. PT HAS A DRY INTERMITTENT COUGH. OXYGEN IS ON @ 2L NC. RT CALLED ET NOTIFIED. O2 SATS ARE 93-94%. PT PERFORMS PURSED LIP BREATHING ET IS ABLE TO SLOW BREATHING ET BECOME LESS ANXIOUS. IVF INFUSING. CALL LIGHT WITHIN REACH.
--- NOTE | 2021-07-12 12:40 | NUR ---
PT PLACED IN CONTACT PRECAUTIONS @ THIS TIME, DISCUSSED WITH PT.
--- NOTE | 2021-07-12 13:45 | NUR ---
INFECTION CONTROL CONTACTED ET PT IS PLACED INTO DROPLET PRECAUTIONS.
--- NOTE | 2021-07-12 14:14 | NUR ---
PT TAKEN TO CT
--- NOTE | 2021-07-12 14:32 | NUR ---
PT BACK FROM CT, IVF CONTINUED. PT IS SITTING UP IN BED, OXYGEN ON @ 2L NC. PT IS REQUESTING A BREATHING TX, RT NOTIFIED.
--- NOTE | 2021-07-12 15:10 | NUR ---
PT RESTING IN BED, INTERMITTENT DRY COUGH HEARD. PT IS COOPERATIVE, ASSISTED TO USE SHAMPOO CAP ET TO COMB HAIR.
--- NOTE | 2021-07-12 17:08 | NUR ---
Jose F CAROLINA NOTIFIED OF PT'S REQUEST TO CONTINUE HOME GABAPENTIN.
[2021-07-12 18:01] LABS: ARTERIAL BLD GAS TCO2 CT 21.1; ARTERIAL BLOOD GAS BASE EXCESS -3.7 (-2-2); ARTERIAL BLOOD GAS HCO3 20.1 meq/L (22-26); ARTERIAL BLOOD GAS PCO2 32.7 mmHg (35-45); ARTERIAL BLOOD GAS PO2 74.5 mmHg (80-100); ARTERIAL BLOOD GAS pH 7.41 (7.35-7.45)
--- NOTE | 2021-07-12 18:15 | NUR ---
PT'S BREATHING IS LABORED, RESPIRATIONS TACHYPNEIC. O2 SATS ARE 87-93% ON RA. 1L O2 VIA NC PUT ON PT, SATS INCREASE TO 94% BUT RESPIRATIONS REMAIN FAST, RATE IN THE HIGH 30s. RT IS CALLED ET ARRIVES TO ADMINISTER BREATHING TX. PT'S RESPIRATIONS REMAIN LABORED ET FAST, WORSENS WHEN PT HAS DRY HACKING COUGHING. ABGs ARE DRAWN ET BIPAP IS PLACED ON PT BY RT. PT REMAINS A&O BUT IS VERY ANXIOUS, STATES "JUST INTUBATE ME" ET "I CAN'T TAKE THIS". RESPIRATIONS BECOME LESS LABORED ET SLOW TO THE 20s AFTER SEVERAL MINUTES ON THE BIPAP. Susan CEBALLOS APRN IS NOTIFIED ET HAS BEEN IN ROOM TO SEE PT. IVF ET ANTIBIOTICS INFUSING INTO PERIPHERAL IV. PT HAS BECOME VISIBLY LESS ANXIOUS, STATES THAT HE WOULD LIKE TO TAKE THE BIPAP OFF. THIS NURSE ENCOURAGES PT TO LEAVE MASK ON BUT PT INSISTS ON TAKING IT OFF. RESPIRATIONS REMAIN UNLABORED ON RA.
--- NOTE | 2021-07-12 19:15 | NUR ---
RECEIVED CHANGE OF SHIFT REPORT FROM DAY SHIFT RN.
--- NOTE | 2021-07-12 20:27 | NUR ---
DENIES CHEST PAIN/NAUSEA/NUMBNESS/TINGLING AT THIS TIME. PATIENT NOT WEARING BIPAP, STATING IT WAS PINCHING HIS NOSE THAT IT WAS CAUSING DISCOMFORT. IV FLUIDS INFUSING WITH PRESRIBED ANTIBIOTICS. ATTEMPTED VENIPUNCTURE OF ADDITIONAL INT SITE D/T PATIENT ON MULTIPLE IV MEDS BUT UNSUCCESSFUL.
[2021-07-13] VITALS (371 sets, daily range): BP systolic 117–194; BP diastolic 53–85; PULSE 72–102; TEMP 97.9–98.8; O2SAT 80–100
--- NOTE | 2021-07-13 02:26 | NUR ---
PATIENT EXTREMELY ANXIOUS AFTER VIGOROUS COUGH EPISODE, NO SPUTUM EXPECTORATED. PATIENT REPORTING WANTING TO BE PUT ON A VENTILATOR. PATIENT DEMANDED TO USE HIS OWN RESCUE INHALER, TAKING AT LEAST 3-4 PUFF DELIVERED RAPIDLY. PATIENT WANTING RT TREATMENT, RT CALLED INFORMING OF PATIENT'S REQUEST. PATIENT CONTINUES TO INSIST ON BEING PUT ON A VENTILATOR, ATTEMPTED TO CALL PROVIDER, UNAVAILABLE AND WILL CALL THIS NURSE BACK. OXYGEN TURNED ON TO 1 LITER, SEE VS PER MEDITECH, OBSERVED OXYGEN SAT MID 90'S WITH OBSERVED RAPID HR OF 110'S THAT SLOWLY DECREASED TO LOW 100'S. ENCOURAGED PATIENT TO PURSE LIP BREATH TO SLOW RAPID RESP RATE, PATIENT SITTING AT SIDE OF BED LEANING OVER OVERBED TRAY STAND. SEE ALCOHOL DETOX SCORING AT 5, PATIENT AGREED TO TAKE PRN ATIVAN, PO LOW DOSING. PATIENT WAS ALSO VERBALIZING HE FELT SHAKEY. SEE MAR FOR MEDS GIVEN. PATIENT CURRENTLY RESTING IN BED, DID NOT GET RT TREATMENT SINCE USING HIS OWN INHALER. OSCILLATING FAN PLACED IN ROOM, AIR CURRENT DIRECTED ON PATIENT PER PATIENT REQUEST.
--- NOTE | 2021-07-13 03:19 | NUR ---
OBSERVED PATIENT LAYING ON SIDE, EYES CLOSED, RESP EFFORT REGULAR AND EVEN. DOES NOT WAKE WHEN NURSING STAFF ENTER ROOM. CALL LIGHT WITHIN REACH. OXYGEN CONTINUES PER NC AT 1LPM. IVF INFUSING WITH NO PROBLEMS.
[2021-07-13 06:24] LABS: BASO % 0.1 % (0.0-2.0); GRAN # 6.4 K/mm3 (1.4-6.5); GRAN % 80.9 % (42.2-75.2); HEMOGLOBIN 10.4 g/dl (13.5-18.0); LYMPH # 1.3 K/mm3 (1.2-3.4); MEAN CELL VOLUME 96 fl (80.0-100.0); MEAN CORPUSCULAR HEMOGLOBIN 31 pg (27-31); MEAN CORPUSCULAR HGB CONC 33 g/dl (33.0-37.0); MEAN PLATELET VOLUME 10.4 fl (7.4-10.4); MONO # 0.1 K/mm3 (0.1-0.6); MONO % 1.6 % (1.7-9.3); PLATELET COUNT 140 K/mm3 (130-400); RED BLOOD COUNT 3.34 M/mm3 (4.20-5.60); REDCELL DISTRIBUTION WIDTH-CV 16.2 % (11.5-14.5)
[2021-07-13 06:38] LABS: HEMATOCRIT 31.9 % (42.0-52.0)
[2021-07-13 06:43] LABS: CALCIUM 8.5 mg/dL (8.4-10.2); CREATININE, serum 0.99 mg/dL (0.72-1.25); MAGNESIUM 1.8 mg/dL (1.6-2.6); POTASSIUM 3.9 mmol/L (3.5-4.5)
--- NOTE | 2021-07-13 07:24 | NUR ---
Change of shift report given to day shift RNLalita.
--- NOTE | 2021-07-13 11:28 | NUR ---
OT is recommending home health. MARK met with the patient to review the recommendation. The patient is open to home health, as long as his insurance pays for it. He has Medicare Part A. MARK informed the patient that Medicare Part A does cover home health. The patient is open to home health. MARK presented the Medicare.gov list of home health agencies that serve [place]. The patient does not have a preference and he was agreeable to using [facility]. MARK contacted and faxed a referral to Radha at [facility]. Radha confirms that Medicare Part A covers home health. Awaiting screen. *Discharge plan: home with home health*
--- NOTE | 2021-07-13 12:56 | NUR ---
PT'S SON ROSINA CALLED ET UPDATED ON PT STATUS. ROSINA STATES THAT HE IS THE DPOA FOR THE PT IF HIS CONDITION DOES WORSEN, HE WOULD LIKE TO BE CALLED.
--- NOTE | 2021-07-13 14:00 | NUR ---
PT'S BED ALARMS, PT IS SEEN SITTING UP ON EDGE OF BED. PT IS CONFUSED, REPEATEDLY STATES "WHERE AM I". ATTEMPTS MADE TO RE-ORIENT PT. PT IS VERY ANXIOUS, RESPIRATIONS LABORED ET TACHYPNEIC ON 4.5 L NC. OXYGEN SATS ARE 92-96%. PT STATES THAT HE HAS TO USE THE BR, IS ASSISTED TO SIT ON THE BSC. PT IS VERY UNSTEADY, STATES HE IS DIZZY, GAIT BELT USED. Aniyah CAROLINA CALLED ET NOTIFIED OF PT CONDITION. PT IS UNABLE TO USE BR ET IS ASSISTED BACK INTO BED WITH 2 ASSIST. PT HAS CONTINUAL COMPLAINTS OF DIZZINESS. SPEECH IS SLURRED ET CONVERSATION WITH PT IS INAPPROPRIATE.
--- NOTE | 2021-07-13 16:31 | NUR ---
Aniyah CAROLINA ET DR. ARECHIGA NOTIFIED OF PT CONDITION. PT'S CIWA SCORE IS NOT FALLING BELOW 12. PT HAS HAD SITTER IN ROOM BUT HAS BECOME INCREASINGLY CONFUSED ET AGITATED. PT ATTEMPTS TO LEAVE BED ON HIS OWN FREQUENTLY.
--- NOTE | 2021-07-13 17:23 | NUR ---
PT TRANSFERRED TO ICU BED 4 @ THIS TIME. REPORT GIVEN TO TEDDY LANDAVERDE. O2 ON @ 5L NC. PT CONTINUES TO BE CONFUSED, STATES THAT WE ROBBED HIM ET THAT WE NOW WANT A BEER. ATTEMPTS MADE TO RE-ORIENT PT. WILL NOTIFY FAMILY OF TRANSFER.
--- NOTE | 2021-07-13 20:34 | NUR ---
PATIENT ARRIVED ON BED BROUGHT DOWN BY TWO MED/SURG NURSES; PATIENT WAS UNCOOPERATIVE AND UNABLE/UNWILLING TO FOLLOW INSTRUCTIONS. GOT PATIENT INTO BED AND STARTED PRECEDEX DRIP. PATIENT TRIED TO CLIMB OUT OF BED NUMEROUS TIMES AND WILL HAVE A SITTER OVERNIGHT TONIGHT. PATIENT CURRENTLY RESTING.
[2021-07-13 21:40] LABS: ARTERIAL BLD GAS O2 SATURATION 98.2 % (92-100); ARTERIAL BLD GAS TCO2 CT 21.8; ARTERIAL BLOOD GAS BASE EXCESS -7.5 (-2-2); ARTERIAL BLOOD GAS HCO3 20.3 meq/L (22-26); ARTERIAL BLOOD GAS PCO2 50.7 mmHg (35-45); ARTERIAL BLOOD GAS pH 7.22 (7.35-7.45)
[2021-07-13 21:41] LABS: ARTERIAL BLOOD GAS PO2 135.8 mmHg (80-100)
--- NOTE | 2021-07-13 23:28 | NUR ---
PRECEDEX DRIP HELD PER PROVIDER ORDER.
--- NOTE | 2021-07-13 23:37 | NUR ---
UPON ASSESSMENT OF PATIENT, HE WAS DIFFICULT TO AROUSE, WITH LABORED BREATHING--USING ACCESSORY MUSCLES, HE ALSO SOUNDED STRIDOROUS. HOSPITALIST WAS CALLED TO BEDSIDE. MULTIPLE ATTEMPTS TO CONTACT PATIENT'S SON. HOWEVER, HE DID NOT ANSWER. DECISION MADE TO INTUBATE PATIENT. TIME OUT PERFORMED PRIOR TO START OF PROCEDURES. PATIENT INTUBATED AT 2127. CENTRAL LINE PLACED. CHEST XRAY COMPLETED.
--- NOTE | 2021-07-13 23:50 | NUR ---
Alarms tested and working, cuff pressure checked and in acceptable range.
[2021-07-14] VITALS (1429 sets, daily range): BP systolic 94–115; BP diastolic 48–97; PULSE 53–97; TEMP 97.9–100.1; O2SAT 78–100
--- NOTE | 2021-07-14 00:09 | NUR ---
FENTANYL DRIP STARTED PER MD. 50MCG BOLUS GIVEN FROM INFUSION PER VERBAL ORDER FROM MD PRESENT AT BEDSIDE
--- NOTE | 2021-07-14 05:06 | NUR ---
SEDATION INTERRUPTION NOT PERFORMED AT THIS TIME. EVEN ON CURRENT SEDATION SETTINGS, PATIENT TACHYPNEIC ON VENT, FREQUENTLY REACHES FOR ETT AND THRASES IN BED. RN TITRATING UP ON SEDATION AT THIS TIME.
[2021-07-14 05:07] LABS: GRAN # 3.8 K/mm3 (1.4-6.5); GRAN % 78.1 % (42.2-75.2); LYMPH # 0.9 K/mm3 (1.2-3.4); LYMPH % 18.2 % (20.0-51.0); MEAN CELL VOLUME 97 fl (80.0-100.0); MEAN CORPUSCULAR HGB CONC 32 g/dl (33.0-37.0); MEAN PLATELET VOLUME 10.3 fl (7.4-10.4); MONO # 0.1 K/mm3 (0.1-0.6); MONO % 2.9 % (1.7-9.3); PLATELET COUNT 131 K/mm3 (130-400); RED BLOOD COUNT 2.87 M/mm3 (4.20-5.60); REDCELL DISTRIBUTION WIDTH-CV 16.7 % (11.5-14.5)
[2021-07-14 05:07] LABS: ARTERIAL BLD GAS O2 SATURATION 95.2 % (92-100); ARTERIAL BLD GAS TCO2 CT 23.7; ARTERIAL BLOOD GAS BASE EXCESS -3.6 (-2-2); ARTERIAL BLOOD GAS HCO3 22.4 meq/L (22-26); ARTERIAL BLOOD GAS PCO2 44.3 mmHg (35-45); ARTERIAL BLOOD GAS PO2 83.2 mmHg (80-100); ARTERIAL BLOOD GAS pH 7.32 (7.35-7.45)
[2021-07-14 05:09] LABS: HEMATOCRIT 27.9 % (42.0-52.0); MEAN CORPUSCULAR HEMOGLOBIN 31 pg (27-31)
[2021-07-14 05:15] LABS: MAGNESIUM 1.8 mg/dL (1.6-2.6); POTASSIUM 3.7 mmol/L (3.5-4.5)
[2021-07-14 05:24] LABS: ARTERIAL BLD GAS O2 SATURATION 95.5 % (92-100); ARTERIAL BLD GAS TCO2 CT 26.6; ARTERIAL BLOOD GAS BASE EXCESS -1.5 (-2-2); ARTERIAL BLOOD GAS HCO3 25.1 meq/L (22-26); ARTERIAL BLOOD GAS PCO2 50.8 mmHg (35-45); ARTERIAL BLOOD GAS PO2 87.4 mmHg (80-100); ARTERIAL BLOOD GAS pH 7.31 (7.35-7.45)
[2021-07-14 10:48] LABS: ARTERIAL BLD GAS TCO2 CT 25.6; ARTERIAL BLOOD GAS BASE EXCESS -0.9 (-2-2); ARTERIAL BLOOD GAS HCO3 24.3 meq/L (22-26); ARTERIAL BLOOD GAS PCO2 42.6 mmHg (35-45); ARTERIAL BLOOD GAS PO2 77.3 mmHg (80-100); ARTERIAL BLOOD GAS pH 7.37 (7.35-7.45)
--- NOTE | 2021-07-14 17:11 | NUR ---
NOT NECESSARY FOR PT AT THIS TIME. PT WAKES TO STIMULI AND FOLLOWS COMMANDS.
[2021-07-15] VITALS (1439 sets, daily range): BP systolic 100–116; BP diastolic 52–61; PULSE 46–55; TEMP 97.5–97.7; O2SAT 74–100
[2021-07-15 05:03] LABS: GRAN # 2.8 K/mm3 (1.4-6.5); GRAN % 67.3 % (42.2-75.2); LYMPH # 1.2 K/mm3 (1.2-3.4); LYMPH % 29.8 % (20.0-51.0); MEAN CELL VOLUME 98 fl (80.0-100.0); MEAN CORPUSCULAR HGB CONC 32 g/dl (33.0-37.0); MEAN PLATELET VOLUME 10.5 fl (7.4-10.4); MONO # 0.1 K/mm3 (0.1-0.6); MONO % 2.4 % (1.7-9.3); PLATELET COUNT 130 K/mm3 (130-400); RED BLOOD COUNT 2.73 M/mm3 (4.20-5.60); REDCELL DISTRIBUTION WIDTH-CV 16.7 % (11.5-14.5)
[2021-07-15 05:06] LABS: HEMATOCRIT 26.7 % (42.0-52.0); HEMOGLOBIN 8.6 g/dl (13.5-18.0); MEAN CORPUSCULAR HEMOGLOBIN 32 pg (27-31)
[2021-07-15 05:24] LABS: CALCIUM 7.9 mg/dL (8.4-10.2); CREATININE, serum 0.97 mg/dL (0.72-1.25); MAGNESIUM 2.8 mg/dL (1.6-2.6); POTASSIUM 3.6 mmol/L (3.5-4.5)
--- NOTE | 2021-07-15 09:08 | NUR ---
PROPOFOL INCREASED TO 40 MCG/KG/MIN AND FENTANYL INCREASED TO 100MCG/HR PER DR. HILLIARD'S VERBAL ORDER.
[2021-07-15 13:06] LABS: COLLECTION METHOD IN
[2021-07-15 13:17] LABS: PH 6 (5-8); SQUAMOUS EPITHELIAL None Seen /hpf (0-10); URINE APPEARANCE Hazy (CLEAR/HAZY); URINE BACTERIA None Seen /hpf (NONE SEEN); URINE BILIRUBIN Negative (NEGATIVE); URINE BLOOD 2+ (NEGATIVE); URINE COLOR Yellow (YELLOW); URINE GLUCOSE Negative (NEGATIVE); URINE KETONE Negative (NEGATIVE); URINE LEUKOCYTE ESTERASE Negative (NEGATIVE); URINE NITRATE Negative (NEGATIVE); URINE PROTEIN(semi-quant) 2+ (NEGATIVE); URINE RBC >50 /hpf (0-2); URINE UROBILINOGEN Negative (NEGATIVE)
[2021-07-16] VITALS (1397 sets, daily range): BP systolic 81–153; BP diastolic 41–74; PULSE 53–87; TEMP 97.7–98.7; O2SAT 92–100
[2021-07-16 05:40] LABS: ALBUMIN 2.6 gm/dL (3.4-4.8); BILIRUBIN,TOTAL 0.3 mg/dL (0.2-1.2); CREATININE, serum 1.06 mg/dL (0.72-1.25); MAGNESIUM 2.8 mg/dL (1.6-2.6); PHOSPHOROUS 3.1 mg/dL (2.3-4.7); POTASSIUM 3.9 mmol/L (3.5-4.5); TOTAL PROTEIN 4.7 gm/dL (6.2-8.1)
--- NOTE | 2021-07-16 06:35 | NUR ---
ASSUMED CARE OF PATIENT AFTER RECEIVING BEDSIDE REPORT. ASSESSMENT COMPLETED, VSS. PATIENT HAD HYPOTENSION FOR 3 HOURS, LEVOPHED STARTED, PATIENT IS VERY SENSITIVE TO THIS MEDICATION AND ONLY NEEDED IT FOR A SHORT TIME. BLOOD PRESSURE REMAINS LOW BUT WITHIN PARAMETERS. ETOH WITHDRAWAL SYMPTOMS IMPROVED. PATIENT DID NOT TOLERATE SEDATION VACATION. WITHIN 5 MINUTES PATIENT BECAME AGITATED AND DID NOT FOLLOW COMMANDS. PATIENT BECAME TACHYPNEIC. NO OTHER ACUTE EVENTS OVERNIGHT. BEDSIDE REPORT TO BE GIVEN TO ONCOMING SHIFT.
[2021-07-16 08:13] LABS: ARTERIAL BLD GAS TCO2 CT 26.4; ARTERIAL BLOOD GAS BASE EXCESS -0.2 (-2-2); ARTERIAL BLOOD GAS HCO3 25.1 meq/L (22-26); ARTERIAL BLOOD GAS PCO2 43.7 mmHg (35-45); ARTERIAL BLOOD GAS PO2 81.6 mmHg (80-100); ARTERIAL BLOOD GAS pH 7.38 (7.35-7.45)
--- NOTE | 2021-07-16 09:54 | NUR ---
BEDSIDE SHIFT REPORT RECEIVED FROM SAIMA HE. LINES RUNNING APPROPRIATE (SEE MEDICATION DRIP FLOWSHEET). MILLER IN PLACE DRAINING, ET AND OG IN PLACE IN ACCORD WITH REPORT. VENT SETTING APPROPRIATE TO REPORT. RESTRAINTS ASSESSED AND IN PLACE. VSS WITH NO ACUTE CHANGES OVERNIGHT
--- NOTE | 2021-07-16 11:16 | NUR ---
Fortino currently in the ICU on a mechanial vent.
--- NOTE | 2021-07-16 16:36 | NUR ---
ATTEMPTED SEDATION VACATION. PT BECAME EXTREMELY AGGITATED, ATTEMPTED TO PULL LINES AND ET TUBE, WAS NOT FOLLOWING COMMANDS, OPENED EYES SPONTANIOUSLY. SEDASTION RESTARTED AT PREVIOUS RATE PER ORDERS IN MAR
--- NOTE | 2021-07-16 16:38 | NUR ---
Clinical updates faxed to Dino at [facility]
[2021-07-17] VITALS (1183 sets, daily range): BP systolic 92–108; BP diastolic 49–59; PULSE 55–75; TEMP 97.7–99; O2SAT 95–100
[2021-07-17 04:43] LABS: ARTERIAL BLD GAS O2 SATURATION 94.6 % (92-100); ARTERIAL BLD GAS TCO2 CT 28.6; ARTERIAL BLOOD GAS BASE EXCESS 1.4 (-2-2); ARTERIAL BLOOD GAS HCO3 27.1 meq/L (22-26); ARTERIAL BLOOD GAS PCO2 48.1 mmHg (35-45); ARTERIAL BLOOD GAS PO2 79.1 mmHg (80-100); ARTERIAL BLOOD GAS pH 7.37 (7.35-7.45)
[2021-07-17 05:09] LABS: MEAN CELL VOLUME 100 fl (80.0-100.0); MEAN CORPUSCULAR HGB CONC 32 g/dl (33.0-37.0); MEAN PLATELET VOLUME 10.2 fl (7.4-10.4); PLATELET COUNT 173 K/mm3 (130-400); RED BLOOD COUNT 2.66 M/mm3 (4.20-5.60); REDCELL DISTRIBUTION WIDTH-CV 17.4 % (11.5-14.5)
--- NOTE | 2021-07-17 05:09 | NUR ---
PT NOT APPLICABLE TO WEAN AT THIS TIME
[2021-07-17 05:14] LABS: HEMATOCRIT 26.7 % (42.0-52.0); HEMOGLOBIN 8.5 g/dl (13.5-18.0); MEAN CORPUSCULAR HEMOGLOBIN 32 pg (27-31)
[2021-07-17 05:25] LABS: CALCIUM 7.9 mg/dL (8.4-10.2); CREATININE, serum 1.27 mg/dL (0.72-1.25); MAGNESIUM 2.9 mg/dL (1.6-2.6); PHOSPHOROUS 4.2 mg/dL (2.3-4.7); POTASSIUM 4.6 mmol/L (3.5-4.5)
--- NOTE | 2021-07-17 05:26 | NUR ---
SEDATION VACATION SEDATION STOPPED FOR 5 MINUTES BEFORE PATIENT BECAME AGITATED AND TACHYPNEIC. PATIENT UNABLE TO FOLLOW COMMANDS OR BE REDIRECTED. PATIENT EXHIBITED SEVERE TREMORS. SEDATION VACATION STOPPED AFTER 5 MINUTES
[2021-07-17 05:48] LABS: ANISOCYTOSIS 1+; LYMPHOCYTE 17 % (20.0-51.0); NEUTROPHILS 80 % (42.0-75.2); PLATELET ESTIMATE NORMAL (NORMAL)
--- NOTE | 2021-07-17 10:15 | NUR ---
BEDSIDE SHIFT REPORT RECIEVED FROM NERI LANDAVERDE. PT VENTED WITH SETTINGS APPROPRIATE TO REPORT. ALL LINES RUNNING APPROPRIATELY (SEE DRIP FLOWSHEET). MILLER OUTPUT WDL. VSS, NO ACUTE CHANGES OVERNIGHT.
--- NOTE | 2021-07-17 13:50 | NUR ---
Attempt made to contact the patients son Benjamin to inroduce myself and see if he would happend to know if the patient had a DPOA-HC established. Attempt was unsuccessful and message left. Collaborated with on if a [facility] referral needed to be sent. At this time he does not feel like the patient is needing a referal placed.
--- NOTE | 2021-07-17 13:59 | NUR ---
Phone message received from the patients son Benjamin. He states that he is that patients DPOA-HC and that he would have to find his copy of it. Benjamin does states that the patient frequently goes to [facility] and they might have a copy of it. All questions answered and no concerns identified. [facility] contacted and they do not have a DPOA-HC on file for this patient.
--- NOTE | 2021-07-17 16:52 | NUR ---
SEDATION VACATION NOT APPROPRAITE AT THIS TIME. AT 1630 PT SCORED A 10 ON CIWA WHILE SandLinksOFOL RUNNING AT 45. NOT DEEMED SAFE AT THIS TIME TO ATTEMPT SEDATION VACATION
--- NOTE | 2021-07-17 20:24 | NUR ---
Assessment complete and charted. Residuals 720ml. Tube feeds on hold. Pupils slightly unequal. Radha CAROLINA notified. Monitor and notify if changes. Patient repositioed at this time.
[2021-07-18] VITALS (1067 sets, daily range): BP systolic 93–140; BP diastolic 49–69; PULSE 52–66; TEMP 97.2–98.8; O2SAT 94–100
[2021-07-18 04:44] LABS: ARTERIAL BLD GAS O2 SATURATION 95.5 % (92-100); ARTERIAL BLD GAS TCO2 CT 29.7; ARTERIAL BLOOD GAS BASE EXCESS 1.9 (-2-2); ARTERIAL BLOOD GAS HCO3 28.1 meq/L (22-26); ARTERIAL BLOOD GAS PCO2 52.2 mmHg (35-45); ARTERIAL BLOOD GAS PO2 83.3 mmHg (80-100); ARTERIAL BLOOD GAS pH 7.35 (7.35-7.45)
[2021-07-18 04:48] LABS: MEAN CELL VOLUME 102 fl (80.0-100.0); MEAN CORPUSCULAR HGB CONC 31 g/dl (33.0-37.0); MEAN PLATELET VOLUME 10.2 fl (7.4-10.4); PLATELET COUNT 176 K/mm3 (130-400); RED BLOOD COUNT 2.68 M/mm3 (4.20-5.60); REDCELL DISTRIBUTION WIDTH-CV 17.5 % (11.5-14.5)
[2021-07-18 04:50] LABS: HEMATOCRIT 27.4 % (42.0-52.0); HEMOGLOBIN 8.5 g/dl (13.5-18.0); MEAN CORPUSCULAR HEMOGLOBIN 32 pg (27-31)
[2021-07-18 04:56] LABS: CALCIUM 7.9 mg/dL (8.4-10.2); CREATININE, serum 1.19 mg/dL (0.72-1.25); PHOSPHOROUS 4.7 mg/dL (2.3-4.7); POTASSIUM 5.3 mmol/L (3.5-4.5)
--- NOTE | 2021-07-18 05:08 | NUR ---
Sedation vacation not preformed. Patient agitated and fighting with minimal stimuli.
[2021-07-18 05:17] LABS: HYPOCHROMIA 1+; LYMPHOCYTE 11 % (20.0-51.0); NEUTROPHILS 89 % (42.0-75.2); OVALOCYTES 1+
[2021-07-18 05:18] LABS: HELMET CELLS 1+; SCHISTOCYTES 1+; TEAR DROP CELLS 1+
[2021-07-18 05:19] LABS: ANISOCYTOSIS 1+
--- NOTE | 2021-07-18 07:00 | NUR ---
BEDSIDE REPORT RECEIVED FROM SAIMA FRIEDMAN. 7.5 ETT 26CM AT TEETH WITH CURRENT VENT SETTINGS; AC MODE, TV 500, PEEP 5, FIO2 40%, RATE 24. OG TUBE 65CM AT TEETH; TF ON HOLD AT THIS TIME DUE TO HIGH RESIDUALS. RIJ TLC IN PLACE; SEE GTT FLOW SHEET FOR RATES AND INFUSIONS. FC TO DEPENDENT DRAINAGE. PT ACCEPTS MECHANICAL VENTILATION. NO S/S DISCOMFORT AT THIS TIME. LIES SUPINE WITH HOB ELEVATED.
--- NOTE | 2021-07-18 07:07 | NUR ---
Report given to Radha LANDAVERDE
--- NOTE | 2021-07-18 19:20 | NUR ---
Report given to SAIMA Pierce.
--- NOTE | 2021-07-18 20:05 | NUR ---
Assessment complete and charted. Patient awakens easily to stimuli. Repositioned.
[2021-07-18 21:37] LABS: CALCIUM 7.9 mg/dL (8.4-10.2); CREATININE, serum 0.79 mg/dL (0.72-1.25); POTASSIUM 5.4 mmol/L (3.5-4.5)
[2021-07-19] VITALS (1105 sets, daily range): BP systolic 89–154; BP diastolic 48–72; PULSE 48–83; TEMP 96.9–99; O2SAT 73–100
[2021-07-19 01:24] LABS: CALCIUM 8.4 mg/dL (8.4-10.2); CREATININE, serum 0.78 mg/dL (0.72-1.25); POTASSIUM 5.2 mmol/L (3.5-4.5)
--- NOTE | 2021-07-19 04:22 | NUR ---
pt unable to wean at this time
[2021-07-19 05:29] LABS: ARTERIAL BLD GAS O2 SATURATION 97.5 % (92-100); ARTERIAL BLD GAS TCO2 CT 33.2; ARTERIAL BLOOD GAS BASE EXCESS 7.4 (-2-2); ARTERIAL BLOOD GAS HCO3 31.8 meq/L (22-26); ARTERIAL BLOOD GAS PCO2 44.3 mmHg (35-45); ARTERIAL BLOOD GAS pH 7.47 (7.35-7.45)
--- NOTE | 2021-07-19 06:00 | NUR ---
Patient awakens with stimuli, does not follow commands. Sedation vacation not preformed due to agitation.
[2021-07-19 06:20] LABS: MEAN CELL VOLUME 99 fl (80.0-100.0); MEAN CORPUSCULAR HGB CONC 32 g/dl (33.0-37.0); MEAN PLATELET VOLUME 10.3 fl (7.4-10.4); PLATELET COUNT 160 K/mm3 (130-400); RED BLOOD COUNT 2.74 M/mm3 (4.20-5.60); REDCELL DISTRIBUTION WIDTH-CV 17.2 % (11.5-14.5)
[2021-07-19 06:23] LABS: HEMATOCRIT 27.2 % (42.0-52.0); HEMOGLOBIN 8.7 g/dl (13.5-18.0); MEAN CORPUSCULAR HEMOGLOBIN 32 pg (27-31)
[2021-07-19 06:30] LABS: CALCIUM 8.3 mg/dL (8.4-10.2); CREATININE, serum 0.75 mg/dL (0.72-1.25); MAGNESIUM 2.5 mg/dL (1.6-2.6); PHOSPHOROUS 4.3 mg/dL (2.3-4.7)
--- NOTE | 2021-07-19 07:00 | NUR ---
PT IS INTUBATED AND SEDATED. VSS. TF ON HOLD D/T HIGH RESIDUALS. WILL CONTINUE TO MONTIOR.
--- NOTE | 2021-07-19 07:14 | NUR ---
Report given to Mara LANDAVERDE
[2021-07-19 07:23] LABS: ANISOCYTOSIS 1+; BAND 1 % (0-10); EOSINOPHIL 1 % (0-4); HYPOCHROMIA 1+; LYMPHOCYTE 16 % (20.0-51.0); NEUTROPHILS 77 % (42.0-75.2); PLATELET ESTIMATE NORMAL (NORMAL)
--- NOTE | 2021-07-19 17:00 | NUR ---
NO CHANGES TO SEDATION AT THIS TIME. PT OPENS EYES TO VOICE, MOVE ALL EXTREMITIES. PT DOESNT FOLLOW COMMANDS. WILL CONTINUE TO MONITOR.
--- NOTE | 2021-07-19 17:46 | NUR ---
FENT DECREASED PER REQUEST.
--- NOTE | 2021-07-19 20:34 | NUR ---
TX GIVEN INLINE WITH VENT, TOLERATED WELL. ORAL CARE DONE. ETT SX CHECKED. ETT FOUND AT 26 @ TEETH, RN AWARE.
[2021-07-20] VITALS (1400 sets, daily range): BP systolic 97–136; BP diastolic 44–63; PULSE 55–90; TEMP 97.5–99; O2SAT 92–100
--- NOTE | 2021-07-20 01:47 | NUR ---
TX GIVEN INLINE WITH VENT, TOLERATED WELL. RN STATED THAT SHE JUST DID ORAL CARE. ETT MOVED TO MIDDLE.
[2021-07-20 04:44] LABS: ARTERIAL BLD GAS O2 SATURATION 95.7 % (92-100); ARTERIAL BLD GAS TCO2 CT 35.9; ARTERIAL BLOOD GAS HCO3 34.5 meq/L (22-26); ARTERIAL BLOOD GAS PCO2 46.4 mmHg (35-45); ARTERIAL BLOOD GAS PO2 79.9 mmHg (80-100); ARTERIAL BLOOD GAS pH 7.49 (7.35-7.45)
--- NOTE | 2021-07-20 05:31 | NUR ---
PER NURSING REPORT, MD WISHES TO KEEP PT SEDATED DUE TO PT GOING THROUGH ALCOHOL WITHDRAWL. TREMORS/ANXIETY INCREASED W/ ANY KIND OF STIMULUS OF PT EVEN WHILE ON SEDATION
[2021-07-20 05:32] LABS: MEAN CELL VOLUME 102 fl (80.0-100.0); MEAN CORPUSCULAR HGB CONC 31 g/dl (33.0-37.0); MEAN PLATELET VOLUME 9.8 fl (7.4-10.4); PLATELET COUNT 195 K/mm3 (130-400); RED BLOOD COUNT 2.77 M/mm3 (4.20-5.60)
[2021-07-20 05:40] LABS: HEMATOCRIT 28.2 % (42.0-52.0); HEMOGLOBIN 8.7 g/dl (13.5-18.0); MEAN CORPUSCULAR HEMOGLOBIN 31 pg (27-31)
[2021-07-20 05:53] LABS: CALCIUM 8.1 mg/dL (8.4-10.2); CREATININE, serum 0.82 mg/dL (0.72-1.25); MAGNESIUM 2.2 mg/dL (1.6-2.6); PHOSPHOROUS 4.8 mg/dL (2.3-4.7); POTASSIUM 4.3 mmol/L (3.5-4.5)
[2021-07-20 06:08] LABS: EOSINOPHIL 3 % (0-4); LYMPHOCYTE 26 % (20.0-51.0); METAMYELOCYTE 1 % (0-0); NEUTROPHILS 70 % (42.0-75.2)
[2021-07-20 06:09] LABS: ANISOCYTOSIS 1+; HYPOCHROMIA 3+; PLATELET ESTIMATE NORMAL (NORMAL)
--- NOTE | 2021-07-20 07:00 | NUR ---
PT IS INTUBATED AND SEDATED. PT IS ON A SMALL DOSE OF LEVOPHED. VSS. WILL CONTINUE TO MONITOR.
--- NOTE | 2021-07-20 20:00 | NUR ---
PATIENT AWAKES UPON VERBAL STIMULATION/ MOVES ABOUT BED WITH HEAD AND LOWER EXTREMITIES/ WILL NOT FOLLOW DIRECTION/ INCREASED MEDICATIONS
[2021-07-21] VITALS (1404 sets, daily range): BP systolic 91–128; BP diastolic 45–79; PULSE 61–88; TEMP 98.3–99.5; O2SAT 84–100
[2021-07-21 04:38] LABS: CALCIUM 8.2 mg/dL (8.4-10.2); CREATININE, serum 0.76 mg/dL (0.72-1.25); POTASSIUM 4.2 mmol/L (3.5-4.5)
--- NOTE | 2021-07-21 05:55 | NUR ---
NOW PATIENT HAS MOVEMENT WITH LIMBS AND HEAD BACK AND FORTH WILL NOT FOLLOW COMMANDS INCREASING PROPOFOL BACK TO ITS PRECEDING DOSE
[2021-07-21 06:37] LABS: ARTERIAL BLD GAS O2 SATURATION 91.8 % (92-100); ARTERIAL BLOOD GAS BASE EXCESS 9.2 (-2-2); ARTERIAL BLOOD GAS HCO3 34.5 meq/L (22-26); ARTERIAL BLOOD GAS PCO2 51.3 mmHg (35-45); ARTERIAL BLOOD GAS PO2 63.9 mmHg (80-100); ARTERIAL BLOOD GAS pH 7.45 (7.35-7.45)
[2021-07-21 07:33] LABS: MEAN CELL VOLUME 99 fl (80.0-100.0); MEAN CORPUSCULAR HGB CONC 32 g/dl (33.0-37.0); MEAN PLATELET VOLUME 10.2 fl (7.4-10.4); PLATELET COUNT 201 K/mm3 (130-400); RED BLOOD COUNT 2.67 M/mm3 (4.20-5.60); REDCELL DISTRIBUTION WIDTH-CV 16.1 % (11.5-14.5)
[2021-07-21 07:36] LABS: HEMATOCRIT 26.4 % (42.0-52.0); HEMOGLOBIN 8.4 g/dl (13.5-18.0); MEAN CORPUSCULAR HEMOGLOBIN 31 pg (27-31)
[2021-07-21 08:12] LABS: EOSINOPHIL 1 % (0-4); LYMPHOCYTE 16 % (20.0-51.0); NEUTROPHILS 77 % (42.0-75.2)
[2021-07-21 08:13] LABS: ANISOCYTOSIS 1+; HYPOCHROMIA 2+; PLATELET ESTIMATE NORMAL (NORMAL)
--- NOTE | 2021-07-21 08:15 | NUR ---
Opens eyes on command and wiggled toes for this nurse. Would not follow other commands or track this nurse. Will continue to monitor.
--- NOTE | 2021-07-21 10:10 | NUR ---
Patient restless; shifting weight and turning head from side to side. Appears diaphoretic with axillary temp of 99.4. PRN ativan administered. WIll monitor for effectiveness.
--- NOTE | 2021-07-21 21:44 | NUR ---
ETT FOUND AT 26 @LIP
[2021-07-22] VITALS (1431 sets, daily range): BP systolic 80–151; BP diastolic 43–90; PULSE 78–105; TEMP 98.1–100.6; O2SAT 82–100
[2021-07-22 05:13] LABS: CALCIUM 8.3 mg/dL (8.4-10.2); CREATININE, serum 0.73 mg/dL (0.72-1.25)
[2021-07-22 05:14] LABS: ARTERIAL BLD GAS O2 SATURATION 92.1 % (92-100); ARTERIAL BLD GAS TCO2 CT 34.2; ARTERIAL BLOOD GAS HCO3 32.8 meq/L (22-26); ARTERIAL BLOOD GAS PCO2 47.8 mmHg (35-45); ARTERIAL BLOOD GAS pH 7.45 (7.35-7.45)
--- NOTE | 2021-07-22 09:00 | NUR ---
Reduced sedation in an attempt to prepare for a CPAP trial. However, patient became restless in bed. Kicking legs over the side of the bed and taking very deep and quick breaths which caused him to desaturate. Returned sedation to previous levels per Dr. Rogers.
--- NOTE | 2021-07-22 14:00 | NUR ---
Updated family via telephone. All questions and concerns addressed at this time.
--- NOTE | 2021-07-22 18:30 | NUR ---
Sedation vacation not performed due to patient restlessness on current sedation levels.
--- NOTE | 2021-07-22 21:00 | NUR ---
PM ASSESSMENT COMPLETE CHARTED. ALSO NOTED BILAT FOOT DROP. WILL UTILIZE FOOT OF BED AND ROM TO ASSIST. PT WARM TO TOUCH AND DIAPHORETIC, ATIVAN GIVEN AT THIS TIME PER CIWA PROTOCOL. SEDATION INCREASED BY ONE TITRATION. PT SEEMS TO HAVE DELICATE BALANCE BETWEEN SEDATION AND BLOOD PRESSURE, WILL CONTINUE TO MONITOR CLOSELY. PT DOES HAVE EYES OPEN SPONTANEOUSLY, HOWEVER NOT TRACKING NOR FOLLOWING ANY COMMANDS. NOTED EDEMA TO BUE, ELEVATED ON PILLOWS AND TURNED Q2HRS. PUPILS UNEQUAL, PROVIDERS AWARE. THEY ARE REACTIVE AND EQUAL ACCOMODATION.
[2021-07-23] VITALS (1265 sets, daily range): BP systolic 91–143; BP diastolic 44–93; PULSE 58–81; TEMP 97.8–99.5; O2SAT 82–100
[2021-07-23 05:07] LABS: ALBUMIN 2.3 gm/dL (3.4-4.8); BILIRUBIN,TOTAL 0.5 mg/dL (0.2-1.2); CALCIUM 8.5 mg/dL (8.4-10.2); CREATININE, serum 0.8 mg/dL (0.72-1.25); MAGNESIUM 2.2 mg/dL (1.6-2.6); PHOSPHOROUS 2.9 mg/dL (2.3-4.7); POTASSIUM 3.6 mmol/L (3.5-4.5); TOTAL PROTEIN 5.4 gm/dL (6.2-8.1)
--- NOTE | 2021-07-23 05:56 | NUR ---
SEDATION VACATION NOT ATTEMPTED PT IS VERY SENSITIVE TO TITRATION, REACTS QUICKLY WITH COUGHING, RESTLESSNESS IN BED.
[2021-07-23 07:51] LABS: BASO % 0.3 % (0.0-2.0); EOS # 0.1 K/mm3 (0.0-0.7); EOS % 1.5 % (0.0-4.0); GRAN # 6.1 K/mm3 (1.4-6.5); GRAN % 77.6 % (42.2-75.2); LYMPH % 12.7 % (20.0-51.0); MEAN CELL VOLUME 98 fl (80.0-100.0); MEAN CORPUSCULAR HGB CONC 32 g/dl (33.0-37.0); MEAN PLATELET VOLUME 10.4 fl (7.4-10.4); MONO # 0.6 K/mm3 (0.1-0.6); MONO % 7.1 % (1.7-9.3); PLATELET COUNT 212 K/mm3 (130-400); RED BLOOD COUNT 2.72 M/mm3 (4.20-5.60); REDCELL DISTRIBUTION WIDTH-CV 15.2 % (11.5-14.5)
[2021-07-23 07:57] LABS: HEMATOCRIT 26.7 % (42.0-52.0); HEMOGLOBIN 8.5 g/dl (13.5-18.0); MEAN CORPUSCULAR HEMOGLOBIN 31 pg (27-31)
--- NOTE | 2021-07-23 08:27 | NUR ---
PATIENT RESTLESS THIS MORNING; SEDATION MEDICATION INCREASED DURING REPORT BY SAIMA ZENG.
--- NOTE | 2021-07-23 11:07 | NUR ---
Manager Business Management contacted patient's son, Benjamin to check in. Benjamin questioned if patient was actually going through alcohol withdrawl because according to Benjamin, patient does not drink as much as he used to. SW contacted SAIMA Enrique to pass along and Iva is aware.
--- NOTE | 2021-07-23 19:21 | NUR ---
DID NOT PERFORM SEDATION VACATION THIS AFTERNOON, PATIENT WAS ABLE TO FOLLOW COMMANDS AND RESPOND APPROPRIATELY.
[2021-07-24] VITALS (1151 sets, daily range): BP systolic 88–131; BP diastolic 45–66; PULSE 50–89; TEMP 96.5–99.2; O2SAT 81–100
[2021-07-24 05:11] LABS: ARTERIAL BLD GAS TCO2 CT 30.3; ARTERIAL BLOOD GAS HCO3 28.8 meq/L (22-26); ARTERIAL BLOOD GAS PCO2 50.1 mmHg (35-45); ARTERIAL BLOOD GAS PO2 83.3 mmHg (80-100); ARTERIAL BLOOD GAS pH 7.38 (7.35-7.45)
--- NOTE | 2021-07-24 05:17 | NUR ---
SEDATION VACATION PATIENT BECAME AGITATED WITHIN THE FIRST FEW MINUTES. PATIENT UNABLE TO FOLLOW COMMANDS. PATIENT DOES NOT EXHIBIT THE SAME TREMOR PREVIOUSLY. SEDATION VACATION STOPPED AT 0508.
[2021-07-24 05:26] LABS: BASO % 0.3 % (0.0-2.0); EOS # 0.1 K/mm3 (0.0-0.7); EOS % 1.4 % (0.0-4.0); GRAN # 5.8 K/mm3 (1.4-6.5); LYMPH # 0.9 K/mm3 (1.2-3.4); LYMPH % 12.2 % (20.0-51.0); MEAN CELL VOLUME 100 fl (80.0-100.0); MEAN CORPUSCULAR HGB CONC 31 g/dl (33.0-37.0); MEAN PLATELET VOLUME 9.8 fl (7.4-10.4); MONO # 0.5 K/mm3 (0.1-0.6); MONO % 6.6 % (1.7-9.3); PLATELET COUNT 197 K/mm3 (130-400); RED BLOOD COUNT 2.71 M/mm3 (4.20-5.60); REDCELL DISTRIBUTION WIDTH-CV 15.1 % (11.5-14.5)
[2021-07-24 05:28] LABS: HEMATOCRIT 27.2 % (42.0-52.0); HEMOGLOBIN 8.4 g/dl (13.5-18.0); MEAN CORPUSCULAR HEMOGLOBIN 31 pg (27-31)
[2021-07-24 05:41] LABS: CALCIUM 8.5 mg/dL (8.4-10.2); CREATININE, serum 0.81 mg/dL (0.72-1.25); POTASSIUM 3.6 mmol/L (3.5-4.5)
--- NOTE | 2021-07-24 06:38 | NUR ---
ASSUMED CARE OF PATIENT AFTER RECEIVING BEDSIDE REPORT. ASSESSMENT COMPLETED, VSS. PATIENT INTERMITTENTLY HYPOTENSIVE AND VERY SENSITIVE TO ANY CHANGES TO LEVOPHED. PATIENT INTERMITTENTLY AGITATED, NO STIMULUS NOTED. NO ACUTE EVENTS OVERNIGHT. BEDSIDE REPORT TO BE GIVEN TO ONCOMING SHIFT
--- NOTE | 2021-07-24 07:55 | NUR ---
PATIENT DID WELL OVERNIGHT; PATIENT STILL ON LEVOPHED AND NEEDS FREQUENT TITRATION. PATIENT STILL BECOMES INCREASINGLY AGITATED WHEN OFF SEDATION. PATIENT CURRENTLY RESTING COMFORTABLY.
--- NOTE | 2021-07-24 11:26 | NUR ---
Aluminizer collaborated with RN who advised plan is to attempt extubation tomorrow.
--- NOTE | 2021-07-24 18:53 | NUR ---
PERFORMED SEDATION VACATION THIS MORNING WHILE ON SPONTANEOUS BREATHING TRIAL; PATIENT DID WELL WITH DECREASED SEDATION FOR APPROX 20 MINUTES, THEN HE BECAME INCREASINGLY AGITATED AND HE BECAME TACHYCARDIC AND HYPERTENSIVE. PATIENT WAS PUT BACK ON SEDATION AND A/C MODE ON THE VENT.
--- NOTE | 2021-07-24 20:42 | NUR ---
Assessment complete and charted. Patient very restless and fighting vent. Attempted to increase sedation. CWAL of 4. Will provide PRN ativan. Repositioned at this time.
[2021-07-25] VITALS (1121 sets, daily range): BP systolic 87–123; BP diastolic 42–97; PULSE 53–89; TEMP 97.9–99; O2SAT 80–100
[2021-07-25 04:46] LABS: ARTERIAL BLD GAS O2 SATURATION 86.7 % (92-100); ARTERIAL BLOOD GAS BASE EXCESS 1.3 (-2-2); ARTERIAL BLOOD GAS HCO3 27.5 meq/L (22-26); ARTERIAL BLOOD GAS PCO2 51.6 mmHg (35-45); ARTERIAL BLOOD GAS PO2 51.3 mmHg (80-100); ARTERIAL BLOOD GAS pH 7.34 (7.35-7.45)
--- NOTE | 2021-07-25 05:06 | NUR ---
Atttemped to contact patient son per request during patient sedation vacation. No answer. Left voicemail.
--- NOTE | 2021-07-25 05:18 | NUR ---
Sedation vacation preformed. Patient very restless, pulling against restraints. Fighting vent. Did not follow commands. Follows staff with eyes throughout room. Sedation increased to previous level.
--- NOTE | 2021-07-25 05:31 | NUR ---
pt not available for weaning at this time
[2021-07-25 05:53] LABS: BASO % 0.3 % (0.0-2.0); EOS # 0.1 K/mm3 (0.0-0.7); GRAN # 5.1 K/mm3 (1.4-6.5); GRAN % 77.7 % (42.2-75.2); LYMPH # 0.8 K/mm3 (1.2-3.4); LYMPH % 12.2 % (20.0-51.0); MEAN CELL VOLUME 98 fl (80.0-100.0); MEAN CORPUSCULAR HGB CONC 33 g/dl (33.0-37.0); MEAN PLATELET VOLUME 10.5 fl (7.4-10.4); MONO # 0.5 K/mm3 (0.1-0.6); MONO % 7.3 % (1.7-9.3); PLATELET COUNT 192 K/mm3 (130-400); RED BLOOD COUNT 2.57 M/mm3 (4.20-5.60); REDCELL DISTRIBUTION WIDTH-CV 14.8 % (11.5-14.5)
[2021-07-25 05:54] LABS: HEMATOCRIT 25.3 % (42.0-52.0); HEMOGLOBIN 8.3 g/dl (13.5-18.0); MEAN CORPUSCULAR HEMOGLOBIN 32 pg (27-31)
[2021-07-25 05:56] LABS: ALBUMIN 2.1 gm/dL (3.4-4.8); BILIRUBIN,TOTAL 0.3 mg/dL (0.2-1.2); CALCIUM 8.2 mg/dL (8.4-10.2); CREATININE, serum 0.8 mg/dL (0.72-1.25); POTASSIUM 3.4 mmol/L (3.5-4.5); TOTAL PROTEIN 5.7 gm/dL (6.2-8.1)
--- NOTE | 2021-07-25 07:00 | NUR ---
BEDSIDE REPORT RECEIVED FROM IDALIA LANDAVERDE. 7.5 ETT 25CM AT TEETH WITH CURRENT VENT SETTINGS; AC MODE, TV 450, PEEP 5, FIO2 35%, RATE 22. OG 65CM AT TEETH AND CLAMPED. RN REPORTS THAT PT DID NOT FOLLOW COMMANDS DURING SEDATION VACATION AND WAS AGITATED; COULD NOT BE CONSOLED THEREFORE SEDATION WAS RESTARTED. FC TO DEPENDENT DRAINAGE. FLORIAN PICC IN PLACE; SEE GTT FLOW SHEET FOR RATES AND INFUSIONS. PT APPEARS TO BE RESTING COMFORTABLY AT THIS TIME; NO S/S DISCOMFORT.
--- NOTE | 2021-07-25 07:19 | NUR ---
Report given to SAIMA Garcia
--- NOTE | 2021-07-25 09:40 | NUR ---
VERSED 3MG BOLUS GIVEN PER DR. ARMINDA GILLETTE.
--- NOTE | 2021-07-25 14:47 | NUR ---
Clinical Support Tech attended clinical rounds and Hospitalist advised patient will likely need trach/peg then [facility] referral. Hospitalist inquired about legal next of kin or DPOA. SW advised no DPOA-HC has been produced by family and SW contacted patient's medical providers and no copy was located. SW advised patient's legal next of kin would be the four children. Hospitalist advised he contacted patient's son, Benjamin and discussed the above information. Benjamin to look for DPOA this evening. SW contacted Benjamin to review legal next of kin and decision making for patient. MARK explained to Benjamin that if he cannot produce a DPOA-HC for patient, patient's four children would need to be contacted for decision. Benjamin verbalized understanding and advised his siblings were up to date on patient's status as he's been texting them. Benjamin provided phone numbers for his siblings. Bruce (ph#[phone]), Luís (ph#[phone]), and Trey (ph#[phone]).
--- NOTE | 2021-07-25 19:59 | NUR ---
TX GIVEN INLINE WITH VENT, TOLERATED WELL. ETT 26 @ TOP TEETH, BOTTOM TEETH DO NOT LINE UP WITH SAME NUMBER.
[2021-07-26] VITALS (1323 sets, daily range): BP systolic 90–121; BP diastolic 44–69; PULSE 66–99; TEMP 98–99.7; O2SAT 74–100
[2021-07-26 04:40] LABS: BASO % 0.3 % (0.0-2.0); EOS # 0.1 K/mm3 (0.0-0.7); EOS % 1.2 % (0.0-4.0); GRAN # 5.2 K/mm3 (1.4-6.5); GRAN % 80.2 % (42.2-75.2); LYMPH # 0.7 K/mm3 (1.2-3.4); LYMPH % 11.2 % (20.0-51.0); MEAN CELL VOLUME 98 fl (80.0-100.0); MEAN CORPUSCULAR HGB CONC 32 g/dl (33.0-37.0); MEAN PLATELET VOLUME 9.6 fl (7.4-10.4); MONO # 0.4 K/mm3 (0.1-0.6); MONO % 6.8 % (1.7-9.3); PLATELET COUNT 159 K/mm3 (130-400); REDCELL DISTRIBUTION WIDTH-CV 14.7 % (11.5-14.5)
[2021-07-26 04:42] LABS: HEMATOCRIT 24.4 % (42.0-52.0); HEMOGLOBIN 7.7 g/dl (13.5-18.0); MEAN CORPUSCULAR HEMOGLOBIN 31 pg (27-31)
[2021-07-26 05:20] LABS: CALCIUM 8.4 mg/dL (8.4-10.2); CREATININE, serum 0.82 mg/dL (0.72-1.25); POTASSIUM 3.7 mmol/L (3.5-4.5)
[2021-07-26 05:38] LABS: ARTERIAL BLD GAS O2 SATURATION 98.6 % (92-100); ARTERIAL BLD GAS TCO2 CT 25.2; ARTERIAL BLOOD GAS BASE EXCESS -1.8 (-2-2); ARTERIAL BLOOD GAS HCO3 23.8 meq/L (22-26); ARTERIAL BLOOD GAS PCO2 44.4 mmHg (35-45); ARTERIAL BLOOD GAS PO2 119.4 mmHg (80-100); ARTERIAL BLOOD GAS pH 7.35 (7.35-7.45)
--- NOTE | 2021-07-26 07:00 | NUR ---
Pt is intubated and sedated. Pt on versed and fent. Pt's levo on hold with bp's in the 90's. Other VSS. [facility]-Pt's son Benjamin called this RN stating he found the pt's DPOA paperwork and will fax it here. Will inform MARK.
--- NOTE | 2021-07-26 10:34 | NUR ---
DR. ALVARENGA CALLED AND NOTIFIED OF CONSULT. CALL PLACE TO , SPOKE WITH HIS RN REGARDING CONSULT.
--- NOTE | 2021-07-26 13:24 | NUR ---
Benjamin faxed in a copy of DPOA- paperwork that designates him as primary agent for healthcare decisions. Benjamin is agreeable to plan for trach/peg, which is to be scheduled. MARK contacted Gabriel at [facility] and faxed referral.
--- NOTE | 2021-07-26 17:00 | NUR ---
PT MOVES ALL EXTREMITIES, BUT DOES NOT FOLLOW COMMANDS OR TRACK. PT BECOMES TACHYCARDIC AND AGITATED WHEN SEDATION DECREASED. PLAN FOR TRACH AND PEG TOMORROW.
--- NOTE | 2021-07-26 17:29 | NUR ---
BEDSIDE TO EVAL PT. PLAN FOR TRACH AND PEG TOMORROW AT 1700. CALLED AND NOTIFIED. PHARMACY CALLED TO HOLD AM [place].
[2021-07-27] VITALS (1268 sets, daily range): BP systolic 95–135; BP diastolic 45–99; PULSE 64–89; TEMP 97–98.9; O2SAT 77–100
[2021-07-27 04:09] LABS: ARTERIAL BLD GAS O2 SATURATION 90.7 % (92-100); ARTERIAL BLD GAS TCO2 CT 22.6; ARTERIAL BLOOD GAS BASE EXCESS -3.6 (-2-2); ARTERIAL BLOOD GAS HCO3 21.4 meq/L (22-26); ARTERIAL BLOOD GAS PCO2 38.2 mmHg (35-45); ARTERIAL BLOOD GAS PO2 64.1 mmHg (80-100); ARTERIAL BLOOD GAS pH 7.37 (7.35-7.45)
[2021-07-27 05:47] LABS: BASO % 0.7 % (0.0-2.0); EOS # 0.1 K/mm3 (0.0-0.7); GRAN # 3.2 K/mm3 (1.4-6.5); LYMPH # 0.9 K/mm3 (1.2-3.4); LYMPH % 19.3 % (20.0-51.0); MEAN CELL VOLUME 98 fl (80.0-100.0); MEAN CORPUSCULAR HGB CONC 31 g/dl (33.0-37.0); MEAN PLATELET VOLUME 9.6 fl (7.4-10.4); MONO # 0.3 K/mm3 (0.1-0.6); MONO % 7.6 % (1.7-9.3); PLATELET COUNT 139 K/mm3 (130-400); REDCELL DISTRIBUTION WIDTH-CV 14.5 % (11.5-14.5)
[2021-07-27 05:54] LABS: CALCIUM 8.1 mg/dL (8.4-10.2); CREATININE, serum 0.78 mg/dL (0.72-1.25); MAGNESIUM 2.3 mg/dL (1.6-2.6); PHOSPHOROUS 3.1 mg/dL (2.3-4.7); POTASSIUM 3.5 mmol/L (3.5-4.5)
--- NOTE | 2021-07-27 05:58 | NUR ---
PT HAS BEEN TOO UNSTABLE TO ATTEMPT WEANING TRIAL. JUST DOING ORAL CARE/SUCTIONING PT DESATURATES DUE TO FIGHTING VENT.
[2021-07-27 06:01] LABS: HEMATOCRIT 22.6 % (42.0-52.0); HEMOGLOBIN 7.1 g/dl (13.5-18.0); MEAN CORPUSCULAR HEMOGLOBIN 31 pg (27-31)
--- NOTE | 2021-07-27 07:00 | NUR ---
BEDSIDE REPORT RECEIVED FROM SAIMA MENDOZA. KELLY REPORT THAT PT HAD 2 EPISODE OF DESATTING INTO THE LOW 80'S OVERNIGHT. 7.5 ETT 25CM AT THE TEETH WITH CURRENT VENT SETTINGS; AC MODE, TV 480, PEEP 5, FIO2 30%, AND RATE 24. OG 65CM AT THE TEETH; CURRENTLY CLAMPED. PT RECEIVING TPN FOR NUTRITION. FLORIAN PICC IN PLACE; SEE GTT FLOW SHEET FOR RATES AND INFUSIONS. 20G PIV TO LEFT FA. FC TO DEPENDENT DRAINAGE. PT APPEARS TO BE RESTING COMFORTABLY; NO S/S DISCOMFORT.
[2021-07-27 09:19] LABS: HEMATOCRIT 22.5 % (42.0-52.0); HEMOGLOBIN 7.3 g/dl (13.5-18.0)
--- NOTE | 2021-07-27 10:29 | NUR ---
Vancomycin Initial Dosing Pharmacy Note Ordering provider: MD ARMINDA Indication/duration: EMPIRIC LABS: WBC 4.5, SCR 0.8, CRCL ~80 Recommendation: VANCOMYCIN 15 MG/KG Loading dose: 1.5 grams Maintenance dose: 1.25 grams every 12 hours Trough goal: 15 ug/mL. TROUGH IF VANC CONTINUES AND CLINICALLY INDICATED
--- NOTE | 2021-07-27 12:26 | NUR ---
Patient to have trach/peg today at 1700. Gabriel with [facility] visited patient and would like updates over the weekend if possible. Gabriel advised likely the earliest they could take patient is Friday. Discharge Plan: [facility]
--- NOTE | 2021-07-27 17:15 | NUR ---
PT TAKEN TO SURGERY BY SURGICAL STAFF AT THIS TIME.
[2021-07-28] VITALS (1301 sets, daily range): BP systolic 103–157; BP diastolic 41–73; PULSE 71–95; TEMP 97.6–100.1; O2SAT 62–100
[2021-07-28 04:23] LABS: BASO % 0.3 % (0.0-2.0); EOS # 0.1 K/mm3 (0.0-0.7); EOS % 1.5 % (0.0-4.0); GRAN % 82.2 % (42.2-75.2); LYMPH # 0.6 K/mm3 (1.2-3.4); LYMPH % 10.4 % (20.0-51.0); MEAN CELL VOLUME 98 fl (80.0-100.0); MEAN CORPUSCULAR HGB CONC 32 g/dl (33.0-37.0); MEAN PLATELET VOLUME 9.8 fl (7.4-10.4); MONO # 0.3 K/mm3 (0.1-0.6); MONO % 5.1 % (1.7-9.3); PLATELET COUNT 148 K/mm3 (130-400); RED BLOOD COUNT 2.18 M/mm3 (4.20-5.60); REDCELL DISTRIBUTION WIDTH-CV 14.8 % (11.5-14.5)
[2021-07-28 04:25] LABS: HEMATOCRIT 21.3 % (42.0-52.0); MEAN CORPUSCULAR HEMOGLOBIN 31 pg (27-31)
[2021-07-28 04:27] LABS: HEMOGLOBIN 6.8 g/dl (13.5-18.0)
[2021-07-28 05:02] LABS: ARTERIAL BLD GAS O2 SATURATION 95.5 % (92-100); ARTERIAL BLD GAS TCO2 CT 27.4; ARTERIAL BLOOD GAS BASE EXCESS 1.7 (-2-2); ARTERIAL BLOOD GAS HCO3 26.1 meq/L (22-26); ARTERIAL BLOOD GAS PCO2 40.1 mmHg (35-45); ARTERIAL BLOOD GAS PO2 77.6 mmHg (80-100); ARTERIAL BLOOD GAS pH 7.43 (7.35-7.45)
--- NOTE | 2021-07-28 06:01 | NUR ---
NO ACUTE EVENTS OVERNIGHT, PATIENT ON BREATHING TRIAL. ALL SAFETY MEASURES MAINTAINED, WILL CONTINUE TO MONITOR.
[2021-07-28 08:50] LABS: CREATININE, serum 0.77 mg/dL (0.72-1.25); POTASSIUM 4.3 mmol/L (3.5-4.5)
[2021-07-28 16:45] LABS: HEMATOCRIT 24.5 % (42.0-52.0); HEMOGLOBIN 8.1 g/dl (13.5-18.0)
--- NOTE | 2021-07-28 17:10 | NUR ---
TF STARTED PER ORDERS
--- NOTE | 2021-07-28 20:15 | NUR ---
TX GIVEN INLINE WITH VENT, TOLERATED WELL. ALARMS CHECKED AND WORKING.
--- NOTE | 2021-07-28 23:00 | NUR ---
Report received from SAIMA Ordoñez
[2021-07-29] VITALS (1424 sets, daily range): BP systolic 93–115; BP diastolic 47–61; PULSE 65–81; TEMP 98.4–99.4; O2SAT 79–100
--- NOTE | 2021-07-29 05:00 | NUR ---
Patient awake and restless on current sedation. Does not follow commands. Will place legs over side of bed and side self towards bottom of bed. Repositioned.
--- NOTE | 2021-07-29 05:35 | NUR ---
8 DIRECTOR TALENT ACQUISITION TRACH.
[2021-07-29 05:41] LABS: BASO % 0.4 % (0.0-2.0); EOS # 0.1 K/mm3 (0.0-0.7); GRAN # 4.4 K/mm3 (1.4-6.5); GRAN % 80.3 % (42.2-75.2); LYMPH # 0.6 K/mm3 (1.2-3.4); LYMPH % 11.8 % (20.0-51.0); MEAN CELL VOLUME 94 fl (80.0-100.0); MEAN CORPUSCULAR HGB CONC 32 g/dl (33.0-37.0); MEAN PLATELET VOLUME 9.6 fl (7.4-10.4); MONO # 0.3 K/mm3 (0.1-0.6); MONO % 5.1 % (1.7-9.3); PLATELET COUNT 141 K/mm3 (130-400); RED BLOOD COUNT 2.52 M/mm3 (4.20-5.60); REDCELL DISTRIBUTION WIDTH-CV 15.7 % (11.5-14.5)
[2021-07-29 05:42] LABS: HEMATOCRIT 23.7 % (42.0-52.0); HEMOGLOBIN 7.6 g/dl (13.5-18.0); MEAN CORPUSCULAR HEMOGLOBIN 30 pg (27-31)
[2021-07-29 05:57] LABS: CALCIUM 8.1 mg/dL (8.4-10.2); CREATININE, serum 0.72 mg/dL (0.72-1.25); POTASSIUM 3.5 mmol/L (3.5-4.5)
--- NOTE | 2021-07-29 07:06 | NUR ---
Report given to SAIMA Fatima
[2021-07-29 07:49] LABS: ARTERIAL BLD GAS O2 SATURATION 97.1 % (92-100); ARTERIAL BLOOD GAS BASE EXCESS 2.1 (-2-2); ARTERIAL BLOOD GAS HCO3 26.7 meq/L (22-26); ARTERIAL BLOOD GAS PCO2 41.8 mmHg (35-45); ARTERIAL BLOOD GAS PO2 93.7 mmHg (80-100); ARTERIAL BLOOD GAS pH 7.42 (7.35-7.45)
--- NOTE | 2021-07-29 13:35 | NUR ---
Clinical updates faxed to Gabriel at [facility] ([phone]).
[2021-07-29 19:08] LABS: HEMATOCRIT 21.9 % (42.0-52.0); HEMOGLOBIN 7.3 g/dl (13.5-18.0)
--- NOTE | 2021-07-29 19:45 | NUR ---
Tube feeds increased to 40ml/hr at this time.
--- NOTE | 2021-07-29 20:05 | NUR ---
RN stated she just did oral care, trach care done by me at this time. Trach is 8LPC Latrice, 7.6ID. Txs given inline with vent.
--- NOTE | 2021-07-29 20:23 | NUR ---
Assessment complete and charted. Patient repositioned.
[2021-07-30] VITALS (1437 sets, daily range): BP systolic 96–144; BP diastolic 49–72; PULSE 74–89; TEMP 97.4–99.8; O2SAT 88–100
--- NOTE | 2021-07-30 02:28 | NUR ---
HUMIDIFIER WATER CHANGED AT THIS TIME.
[2021-07-30 04:59] LABS: ARTERIAL BLD GAS O2 SATURATION 91.6 % (92-100); ARTERIAL BLD GAS TCO2 CT 28.2; ARTERIAL BLOOD GAS BASE EXCESS 3.4 (-2-2); ARTERIAL BLOOD GAS PCO2 37.3 mmHg (35-45); ARTERIAL BLOOD GAS PO2 60.7 mmHg (80-100); ARTERIAL BLOOD GAS pH 7.48 (7.35-7.45)
--- NOTE | 2021-07-30 06:08 | NUR ---
Sedation vacation not preformed. Patient is alert on current sedation. Patient having large amounts of liquid stool, rectal tube placed. Repositioned.
[2021-07-30 06:25] LABS: BILIRUBIN,TOTAL 0.4 mg/dL (0.2-1.2); CALCIUM 8.4 mg/dL (8.4-10.2); CREATININE, serum 0.71 mg/dL (0.72-1.25); MAGNESIUM 1.9 mg/dL (1.6-2.6); PHOSPHOROUS 3.1 mg/dL (2.3-4.7); POTASSIUM 3.9 mmol/L (3.5-4.5); TOTAL PROTEIN 5.3 gm/dL (6.2-8.1)
[2021-07-30 07:06] LABS: BASO % 0.5 % (0.0-2.0); EOS # 0.1 K/mm3 (0.0-0.7); EOS % 3.4 % (0.0-4.0); GRAN # 3.1 K/mm3 (1.4-6.5); GRAN % 74.8 % (42.2-75.2); LYMPH # 0.7 K/mm3 (1.2-3.4); LYMPH % 16.3 % (20.0-51.0); MEAN CELL VOLUME 95 fl (80.0-100.0); MEAN CORPUSCULAR HGB CONC 32 g/dl (33.0-37.0); MEAN PLATELET VOLUME 10.2 fl (7.4-10.4); MONO # 0.2 K/mm3 (0.1-0.6); MONO % 4.8 % (1.7-9.3); PLATELET COUNT 166 K/mm3 (130-400); RED BLOOD COUNT 2.53 M/mm3 (4.20-5.60); REDCELL DISTRIBUTION WIDTH-CV 15.3 % (11.5-14.5)
[2021-07-30 07:07] LABS: HEMATOCRIT 24.1 % (42.0-52.0); HEMOGLOBIN 7.7 g/dl (13.5-18.0); MEAN CORPUSCULAR HEMOGLOBIN 30 pg (27-31)
--- NOTE | 2021-07-30 07:14 | NUR ---
Report given to SAIMA Fatima
--- NOTE | 2021-07-30 11:33 | NUR ---
Patient will have to wake till EEG machine is done being used for outpatients since patient is in concact isolation. For infection precautions. Will check back.
--- NOTE | 2021-07-30 13:23 | NUR ---
Construction Equipment Mechanic Helper faxed clinical updates to Gabriel at [facility]. Gabriel advised he can accept patient tomorrow at the [facility]. Gabriel spoke with patient's son, Benjamin who is in agreement. Discharge Plan: [facility] tomorrow
[2021-07-30 13:46] LABS: CLOSTRIDIUM DIFF A/B NEG; CLOSTRIDIUM DIFF A/B INTERP No C.diff present
[2021-07-30 18:19] LABS: HEMATOCRIT 25.9 % (42.0-52.0); HEMOGLOBIN 8.7 g/dl (13.5-18.0)
--- NOTE | 2021-07-30 18:50 | NUR ---
PT has opened eyes spontaneously and thrown legs off of the bed through out the day. During noon assessment patient did squeeze with his right hand when asked and shook his head when asked if he could hear this RN talking to him. After that interaction patient did not follow any commands. PT continues to throw legs off the side of bed and squirms down the bed. While trying to reposition patient he does try to grab for trach. otherwise patient has had an uneventful day. MRI is to be done in AM and EEG hopefully tomorrow as well if schedule allows. Will report to oncoming RN.
[2021-07-30 20:06] LABS: ARTERIAL BLD GAS O2 SATURATION 90.4 % (92-100); ARTERIAL BLD GAS TCO2 CT 31.9; ARTERIAL BLOOD GAS BASE EXCESS 7.2 (-2-2); ARTERIAL BLOOD GAS HCO3 30.7 meq/L (22-26); ARTERIAL BLOOD GAS PCO2 39.4 mmHg (35-45); ARTERIAL BLOOD GAS PO2 55.8 mmHg (80-100); ARTERIAL BLOOD GAS pH 7.51 (7.35-7.45)
--- NOTE | 2021-07-30 20:28 | NUR ---
TRACH CARE AND ORAL CARE DONE AT THIS TIME, TOLERATED WELL. TXS GIVEN INLINE WITH VENT.
[2021-07-31] VITALS (605 sets, daily range): BP systolic 101–126; BP diastolic 50–64; PULSE 71–87; TEMP 97.8–99; O2SAT 81–100
[2021-07-31 05:18] LABS: BASO % 0.5 % (0.0-2.0); EOS # 0.2 K/mm3 (0.0-0.7); EOS % 4.6 % (0.0-4.0); GRAN # 2.4 K/mm3 (1.4-6.5); GRAN % 65.7 % (42.2-75.2); LYMPH # 0.9 K/mm3 (1.2-3.4); LYMPH % 23.5 % (20.0-51.0); MEAN CELL VOLUME 97 fl (80.0-100.0); MEAN CORPUSCULAR HGB CONC 32 g/dl (33.0-37.0); MEAN PLATELET VOLUME 9.9 fl (7.4-10.4); MONO # 0.2 K/mm3 (0.1-0.6); MONO % 5.4 % (1.7-9.3); PLATELET COUNT 173 K/mm3 (130-400); RED BLOOD COUNT 2.67 M/mm3 (4.20-5.60); REDCELL DISTRIBUTION WIDTH-CV 15.1 % (11.5-14.5)
[2021-07-31 05:25] LABS: HEMOGLOBIN 8.2 g/dl (13.5-18.0); MEAN CORPUSCULAR HEMOGLOBIN 31 pg (27-31)
[2021-07-31 05:45] LABS: CALCIUM 8.9 mg/dL (8.4-10.2); CREATININE, serum 0.71 mg/dL (0.72-1.25); POTASSIUM 4.5 mmol/L (3.5-4.5)
--- NOTE | 2021-07-31 06:26 | NUR ---
RT talked to RN. EEG not able to be performed bc patient can't stop moving head and body. Patient might be going to [facility] today. Will check back with RN.
--- NOTE | 2021-07-31 07:00 | NUR ---
PT ON THE VENT THRU HIS TRACH. PT'S VSS. PT ON VERSED AND FENT. VSS. WILL CONTIUE TO [place].
[2021-07-31 07:36] LABS: ARTERIAL BLD GAS O2 SATURATION 66.2 % (92-100); ARTERIAL BLD GAS TCO2 CT 29.4; ARTERIAL BLOOD GAS BASE EXCESS 3.4 (-2-2); ARTERIAL BLOOD GAS HCO3 28.1 meq/L (22-26); ARTERIAL BLOOD GAS PCO2 43.2 mmHg (35-45); ARTERIAL BLOOD GAS pH 7.43 (7.35-7.45)
[2021-07-31 07:38] LABS: ARTERIAL BLOOD GAS PO2 34.6 mmHg (80-100)
--- NOTE | 2021-07-31 09:29 | NUR ---
Gabriel at [facility] advised they can accept patient today at the [place] location and requested pickers material handlers time of 1000. MARK contacted [facility] and scheduled pickers material handlers time for 1000. MARK notified Electrophysiology Technician, RN, and patient's son Benjamin of pickers material handlers time. Benjamin states he is in agreement with discharge plan. MARK provided dr to phone number to Hospitalist as accepting dr, Dr. Moore requested call. MARK faxed discharge orders and DPOA-HC to Gabriel brown [facility]. MARK placed completed EMS forms on patient's chart. Discharge Plan: [facility] today
--- NOTE | 2021-07-31 09:41 | NUR ---
REPORT CALLED TO BRIAN LANDAVERDE. ALL QUESTIONS ANSWERED. PT PACKED UP. EMS TO ARRIVE AT 1000.
--- NOTE | 2021-07-31 10:45 | NUR ---
PT DISCHARGED TO [facility]. EMS PICKED UP FOR TRANSPORT. REPORT GIVEN TO EMS. PT TRANSFERED TO [facility], EMS VENT, AND MONITORING.
== END 2021-07-31 10:45 | DRG 4 ==
LOC: COL.ER 13:53 → ICU 16:58 → SURG 16:58 → ICU 07-13 16:50 → SURG 07-13 16:50 → ICU 07-14 07:23
PROVIDERS: Emergency Medicine; Family Medicine; Internal Medicine; Internal Medicine Pulmonary Disease; Nurse Practitioner Family; Otolaryngology; Physician Assistant; Student in an Organized Health Care Education/Training Program; ADMIT Student in an Organized Health Care Education/Training Program
PROC: 5A1955Z Respiratory Ventilation, Greater than 96 Consecutive Hours (ICD-10-PCS; 2021-07-13)
PROC: 0BH17EZ Insertion of Endotracheal Airway into Trachea, Via Natural or Artificial Opening (ICD-10-PCS; 2021-07-13)
PROC: 05HM33Z Insertion of Infusion Device into Right Internal Jugular Vein, Percutaneous Approach (ICD-10-PCS; 2021-07-13)
PROC: 02HV33Z Insertion of Infusion Device into Superior Vena Cava, Percutaneous Approach (ICD-10-PCS; 2021-07-19)
PROC: 0DH68UZ Insertion of Feeding Device into Stomach, Via Natural or Artificial Opening Endoscopic (ICD-10-PCS; 2021-07-27)
PROC: 0B110F4 Bypass Trachea to Cutaneous with Tracheostomy Device, Open Approach (ICD-10-PCS; principal; 2021-07-27 17:00)
DX: J44.1 Chronic obstructive pulmonary disease with (acute) exacerbation (principal); G93.41 Metabolic encephalopathy; J12.2 Parainfluenza virus pneumonia; J96.01 Acute respiratory failure with hypoxia; K92.1 Melena; N17.9 Acute kidney failure, unspecified; E46 Unspecified protein-calorie malnutrition; C91.10 Chronic lymphocytic leukemia of B-cell type not having achieved remission; K56.7 Ileus, unspecified; J44.0 Chronic obstructive pulmonary disease with (acute) lower respiratory infection; D64.9 Anemia, unspecified; F10.21 Alcohol dependence, in remission; E87.6 Hypokalemia; I10 Essential (primary) hypertension; K21.9 Gastro-esophageal reflux disease without esophagitis; F17.210 Nicotine dependence, cigarettes, uncomplicated; E78.5 Hyperlipidemia, unspecified; G62.1 Alcoholic polyneuropathy; I48.0 Paroxysmal atrial fibrillation; B97.4 Respiratory syncytial virus as the cause of diseases classified elsewhere; I95.9 Hypotension, unspecified; E87.5 Hyperkalemia; I95.1 Orthostatic hypotension; Z79.01 Long term (current) use of anticoagulants; Z79.82 Long term (current) use of aspirin; Z68.24 Body mass index [BMI] 24.0-24.9, adult
CPT/HCPCS: 99223-AI; 99232-AI; 99233-AI; 99239; A7521; C1751; C9113; J0330; J0610; J1650; J1815; J1940; J2060; J2185; J2212; J2250; J2543; J2704; J2765; J2920; J2930; J3010; J3370; J3411; J3475; J3480; J7030; J7040; J7042; J7050; J7060; J7120; J7512; P9016; Q9967

== ENCOUNTER 2021-09-21 10:18 | Day surgery (SDC) | payer BC ==
[~2021-09-21] VITALS: Ht 182.9 cm; Wt 78.1 kg
[~2021-09-21 10:18] MED LIST changes: +B-121000 MCG PO; +FERRO-TIME325 MG PO; +FIORICET 325 MG1 TA1 PO; +LIPITOR 10MG10 MG PO; +MELATONIN5 M1 SL; +PACERONE200 MG PO; +PAXIL40 MG PO; +PRINIVIL10 MG PO; +VITAMIN C500 MG PO
[2021-09-21] MEDS ORDERED: XARELTO10 MG PO (10:56)
[2021-09-21] MEDS ORDERED: FERROUS SU325 MG/TAB PO (10:56)
[2021-09-21] MEDS ORDERED: ASPIRIN 81M81 MG/TA2 PO (10:57)
[2021-09-21] MEDS ORDERED: ZESTRIL 10MG10 MG PO (10:59)
[2021-09-21] MEDS ORDERED: THEO-24 20200 MG/CAP PO (10:59)
[2021-09-21] MEDS ORDERED: MELATONIN ER10 MG PO (11:01)
[2021-09-21] MEDS ORDERED: NEURONTIN300 MG/CAP PO (11:01)
[2021-09-21] MEDS ORDERED: PROAIR HFA0.09 MG/AC IH (11:03)
[2021-09-21 11:05] VITALS: BP 140/70; PULSE 69; TEMP 97.3
[2021-09-21 12:35] VITALS: BP 127/70; PULSE 64; TEMP 97.1
--- NOTE | 2021-09-21 12:35 | NUR ---
PATIENT RETURNS TO ROOM 6 VIA CART. ASSIST X 1 TO CHAIR. VITAL SIGNS WNL. HE REQUESTS MUFFINS AND A SPRITE. WILL CONTINUE TO MONITOR.
[2021-09-21 12:50] VITALS: BP 129/72; PULSE 61
--- NOTE | 2021-09-21 12:50 | NUR ---
PATIENT IS AWAKE AND ORIENTED. VITAL SIGNS WNL. IV REMOVED. WAITING FOR DOCTOR TO SEE HIM. HE DENIES ANY PAIN OR NAUSEA. WILL CONTINUE TO MONITOR.
[2021-09-21 13:05] VITALS: BP 143/71; PULSE 57
--- NOTE | 2021-09-21 13:05 | NUR ---
PATIENT IS READY FOR DISCHARGE. INSTRUCTIONS REVIEWED. LAST SET OF VITAL SIGNS WNL. WILL DISCHARGE SOON DOCTOR TALKS TO PATIENT.
== END 2021-09-21 13:22 | disposition home or self-care (01) ==
LOC: SDCO 10:18
DX: D50.9 Iron deficiency anemia, unspecified (principal); K92.1 Melena; K57.30 Diverticulosis of large intestine without perforation or abscess without bleeding; K64.1 Second degree hemorrhoids; Z86.010 Personal history of colon polyps; Z87.891 Personal history of nicotine dependence
CPT/HCPCS: J7030

== ENCOUNTER 2021-11-05 13:58 | Emergency (ER) | payer BC, MEDICARE ==
[~2021-11-05] VITALS: Ht 182.9 cm; Wt 81.8 kg
[~2021-11-05 13:58] MED LIST changes: +FERROUS SU325 MG/TAB PO; +MELATONIN ER10 MG PO; +PROAIR HFA0.09 MG/AC IH; +THEO-24 20200 MG/CAP PO; +XARELTO10 MG PO; +ZESTRIL 10MG10 MG PO
[2021-11-05 14:13] VITALS: TEMP 97.9
[2021-11-05 15:42] LABS: BASO % 0.1 % (0.0-2.0); EOS % 0.1 % (0.0-4.0); GRAN # 6.9 K/mm3 (1.4-6.5); GRAN % 80.6 % (42.2-75.2); HEMATOCRIT 42.3 % (42.0-52.0); HEMOGLOBIN 13.5 g/dl (13.5-18.0); LYMPH # 1.4 K/mm3 (1.2-3.4); LYMPH % 16.1 % (20.0-51.0); MEAN CELL VOLUME 94 fl (80.0-100.0); MEAN CORPUSCULAR HEMOGLOBIN 30 pg (27-31); MEAN CORPUSCULAR HGB CONC 32 g/dl (33.0-37.0); MEAN PLATELET VOLUME 10.2 fl (7.4-10.4); MONO # 0.2 K/mm3 (0.1-0.6); MONO % 2.6 % (1.7-9.3); PLATELET COUNT 243 K/mm3 (130-400); RED BLOOD COUNT 4.52 M/mm3 (4.20-5.60); REDCELL DISTRIBUTION WIDTH-CV 15.4 % (11.5-14.5)
[2021-11-05 15:49] LABS: INR 1.1 (0.8-3.0); PROTHROMBIN TIME 13.1 SECONDS (9.7-12.8)
[2021-11-05 16:06] LABS: ALANINE AMINOTRANSFERASE 22 U/L (0-55); ALKALINE PHOSPHATASE 91 U/L (40-150); ANION GAP 13 mmol/L (7-16); AST,SGOT 19 U/L (5-34); BILIRUBIN,TOTAL 0.7 mg/dL (0.2-1.2); BLOOD UREA NITROGEN 16 mg/dL (8-26); CALCIUM 10.1 mg/dL (8.4-10.2); CARBON DIOXIDE 22 mmol/L (23-31); CHLORIDE 101 mmol/L (98-107); CREATININE, serum 0.99 mg/dL (0.72-1.25); GLUCOSE 100 mg/dL (70-99); POTASSIUM 4.5 mmol/L (3.5-4.5); SODIUM 136 mmol/L (136-145); TOTAL PROTEIN 7.3 gm/dL (6.2-8.1)
[2021-11-05 16:16] LABS: TROPONIN-I < 0.010 ng/mL (0.00-0.033)
[2021-11-05 17:21] VITALS: BP 132/72; PULSE 66
== END 2021-11-05 17:28 | disposition home or self-care (01) ==
LOC: COL.ER 13:58
PROVIDERS: Family Medicine
DX: J44.9 Chronic obstructive pulmonary disease, unspecified (principal); F17.290 Nicotine dependence, other tobacco product, uncomplicated; Z20.822 Contact with and (suspected) exposure to COVID-19
CPT/HCPCS: Q9967

== ENCOUNTER → 2023-01-07 | Outpatient (CLI) | payer BC ==
[~2023-01-07] MED LIST changes: +NEURONTIN300 MG/CAP
== END ==
LOC: CANSCHCLI → COL.RAD 13:25
DX: C91.11 Chronic lymphocytic leukemia of B-cell type in remission (principal); R91.1 Solitary pulmonary nodule
CPT/HCPCS: J1644; Q9967